=== PATIENT | female | born 2005 | race Caucasian/White ===

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

== ENCOUNTER → 2023-03-24 | Outpatient (CLI) | payer OTHER, SELFPAY ==
--- OUTSIDE RECORDS SUMMARY | 2023-03-24 16:20 | XMS RPT_ITS | CCD ---
Author Name Unknown Address [address] [place] [id number] Organization [facility] Care Team Providers Care Denier Control Operator Name Role Phone HELDER CAMARGO [facility] Azra vailable Results Test Name Value Interpretation Reference Range Facil ity Encounters Encounter Date Encounter Type Care Provider Facility Start: 03-08-2023 End: 03-08-2023 ambulatory HELDER IRWIN Facility:[facility] Payers Date Payer Category Payer Private Health Insurance [id number] Progress note 03-08-2023 Note Date & Type Note Facility 03-08-2023 Note HNO ID: [id number] Author: Nathaniel Pozo APRN.[employer]PER[employer]OR [employer] Service: ? Author Type: Nurse Practitioner Type: Progress Notes Filed: 03/08/2023 6:15 PM Note Text: Subjective HPI HPI Anders Saeed is a 17 year old female who presents today for CC of st, sinus pressure. This started 2 days ago. Has tried otc medication for relief. Symptoms are worsened by nothing. Risk factors sick exposures recently. .Patient presents with: Sore Throat: Sionus pressure x2 days No past medical history on file. PAST SURGICAL HISTORY Procedure Laterality Date PAST SURGICAL HISTORY OF trigger finger release age 1 ALLERGIES Patient has no known allergies. MEDICATIONS ALBUTEROL INHALATION Inhale as instructed. hydrALAZINE (APRESOLINE) 100 mg tablet Take 100 mg by mouth two times a day. metroNIDAZOLE (FLAGYL) 500 mg tablet Take 1 tablet by mouth twice daily. flunisolide 80 mcg/actuation HFAA Inhale as instructed. hydrOXYzine HCl (ATARAX) 25 mg tablet Take 25 mg by mouth three times daily as needed. montelukast chewable (SINGULAIR) 5 mg chewable tablet Take 5 mg by mouth daily at bedtime. predniSONE (DELTASONE) 10 mg tablet Take 3 tablets once daily by mouth for 3 days, then 2 tablets daily for 3 days then 1 tablet daily for 3 days. BECLOMETHASONE DIPROPIONATE (QVAR INHALATION) Inhale as instructed. LANSOPRAZOLE (PREVACID ORAL) Take by mouth. FAMILY HISTORY Problem Relation Age of Onset Stroke Father Social History Tobacco Use Smoking status: Never Smokeless tobacco: Never Review of Systems Constitutional: Negative for fever. HENT: Positive for congestion, ear pain and sore throat. Negative for nosebleeds. Respiratory: Negative for cough, shortness of breath and wheezing. Musculoskeletal: Negative for neck pain. Objective Blood pressure 114/60, pulse 100, temperature 36.9 ?C (98.5 ?F), resp. rate 18, weight 72.2 kg (159 lb 3.2 oz), last menstrual period 08/27/2018, SpO2 98%. Physical Exam Constitutional: General: She is not in acute distress. Appearance: She is not toxic-appearing or diaphoretic. HENT: Head: Normocephalic and atraumatic. Right Ear: Hearing, tympanic membrane, ear canal and external ear normal. Left Ear: Hearing, tympanic membrane, ear canal and external ear normal. Nose: Nose normal. Mouth/Throat: Pharynx: Uvula midline. Posterior oropharyngeal erythema present. No pharyngeal swelling, oropharyngeal exudate or uvula swelling. Eyes: General: Lids are normal. No scleral icterus. Right eye: No discharge. Left eye: No discharge. Conjunctiva/sclera: Conjunctivae normal. Pupils: Pupils are equal, round, and reactive to light. Neck: Trachea: Trachea normal. Cardiovascular: Rate and Rhythm: Normal rate and regular rhythm. Heart sounds: Normal heart sounds. Pulmonary: Effort: Pulmonary effort is normal. Breath sounds: Normal breath sounds. Musculoskeletal: Cervical back: Normal range of motion and neck supple. Lymphadenopathy: Cervical: No cervical adenopathy. Right cervical: No superficial cervical adenopathy. Left cervical: No superficial cervical adenopathy. Skin: Findings: No rash. Neurological: Mental Status: She is alert and oriented to person, place, and time. ASSESSMENT/PLAN: 1. Sore throat - ICD9: 462, ICD10: J02.9 - suspect viral - Group A strep molecular testing negative - antibiotic as written - Discussed supportive care treatment with fluids, rest and analgesia. - The patient should follow up in 3-5 days if symptoms persist or worsen - STREP A MOLECULAR (POC) Nathaniel Pozo APRN.[employer]PERVISOR [employer] [facility] Summary Purpose Family History No Family History Records FoundNo Family History Records Found Advance Directives No Advanced Directives Records FoundNo Advanced Directives Records Found Additional Source Comments INFORMATION SOURCE (unrecogn ized section and content) DATE CREATED AUTHOR AUTHOR'S ORGANIZ ATION 03/10/2023 [facility] FOR RECORDS PERTAINING TO PATIENTS WHO ARE OR HAVE BEEN ENROLLED IN A CHEMICAL DEPENDENCY/SUBSTANCEABUSE PROGRAM, SOME INFORMATION MAY BE OMITTED. This clinical summary was aggregated from multiple sources. Caution should be exercised in using it in the provision of clinical care. This summary normalizes information from multiple sources, and as a consequence, information in this document may materially change the coding, format and clinical context of patient data. In addition, data may be omitted in some cases. CLINICAL DECISIONS SHOULD BE BASED ON THE PRIMARY CLINICAL RECORDS. [employer] [facility]. provides no warranty or guarantee of the accuracy or completeness of information in this document.
[2023-03-24 17:53] LABS: Vitamin B12 250 pg/mL (211-911); Vitamin D,25 Hydroxy 23.3 ng/mL
[2023-03-24 17:55] LABS: Absolute Lymphocyte Count 2.79 X10^3/uL (0.83-4.51); Absolute Neutrophil Count 7.7 X10^3/uL (2.0-7.7); Basophil# 0.05 X10^3/uL; Basophil% 0.4 % (0-1); Eosinophil# 0.12 X10^3/uL; Eosinophils% 1.1 % (0-5); Hematocrit 41.3 % (37-47); Hemoglobin 13.4 g/dL (12.0-15.0); Lymphocyte # 2.79 X10^3/ul (0.83-4.51); Lymphocyte % 24.6 % (19-41); Mean Corp Hgb Conc 32.4 g/dL (32-36); Mean Corpuscular Hgb 29.1 pg (27.0-32.0); Mean Corpuscular Volume 89.6 fL (81-99); Mean Platelet Vol. 11.4 fl (6.2-12.0); Monocyte# 0.61 X10^3/uL; Monocyte% 5.4 % (0-10); NRBC Flagged by Analyzer 0 % (0-5); Neutrophil # 7.72 X10^3/uL (2.7-7.7); Neutrophil % 68.1 % (47-70); Platelet Count 315 K/mm3 (150-450); RBC Distribution Width SD 42.5 fl (35.1-43.9); Red Blood Count 4.61 M/mm3 (4.2-5.4); White Blood Count 11.3 K/mm3 (4.4-11.0)
[2023-03-24 17:56] LABS: Erythrocyte Sedimentation Rate 9 mm/hr (0-30)
[2023-03-24 18:14] LABS: CRP 3.83 mg/L (0.0-3.0)
== END | disposition home or self-care (01) ==
LOC: MTLAB 15:17
PROVIDERS: PCP Family Medicine; Referring Provider Family Medicine; Visit Provider Family Medicine
DX: M25.50 Pain in unspecified joint (principal); R53.83 Other fatigue; E55.9 Vitamin D deficiency, unspecified; M79.10 Myalgia, unspecified site; E53.8 Deficiency of other specified B group vitamins
CPT/HCPCS: 36415; 82306; 82607; 85025; 85652; 86140

== ENCOUNTER → 2023-06-22 | Outpatient (CLI) | payer OTHER, SELFPAY | END | disposition home or self-care (01) | PROVIDERS: PCP Family Medicine; Visit Provider Physician Assistant Surgical | DX: N39.0 Urinary tract infection, site not specified (principal) | CPT/HCPCS: 87086 ==

== ENCOUNTER → 2024-02-19 | Outpatient (CLI) | payer OTHER, SELFPAY ==
[2024-02-19 17:49] LABS: Erythrocyte Sedimentation Rate 8 mm/hr (0-30)
[2024-02-19 17:54] LABS: ALB/GLOB Ratio 1.5 RATIO (0.9-2.4); AST(SGOT) 20 U/L (15-37); Alanine Aminotransfer ALT/SGPT 49 U/L (13-56); Albumin, Serum 4.4 g/dL (3.2-5.0); Alkaline Phosphatase 39 U/L (45-117); Anion Gap 6 (5-15); BUN 10 mg/dL (7-18); BUN/Creat Ratio 12.5 RATIO (10-20); Calcium,Total 9.6 mg/dL (8.5-10.1); Chloride 109 mmol/L (98-107); EST Glomerular Filtration Rate 97 mL/min (>60); Est Glom Filt Rate - Afr Amer 117 mL/min (>60); Glucose 97 mg/dL (74-106); Protein, Total 7.4 g/dL (6.4-8.2); Sodium Level 139 mmol/L (136-145)
[2024-02-19 19:04] LABS: Vitamin B12 1819 pg/mL (211-911)
[2024-02-21 16:08] LABS: Deamidated Gliadin IgA 2 units (0-19); Deamidated Gliadin IgG 2 units (0-19); Endomysial Antibody IgA Negative (Negative); Immunoglobulin A 154 mg/dL (87-352); t-Transglutaminase IgA <2 U/mL (0-3)
[2024-02-26 09:22] LABS: Vitamin D 1,25-Dihydroxy 48.7 pg/mL (24.8-81.5)
== END | disposition home or self-care (01) ==
LOC: MTLAB 14:22
PROVIDERS: PCP Family Medicine; Referring Provider Family Medicine; Visit Provider Family Medicine
DX: K58.0 Irritable bowel syndrome with diarrhea (principal)
CPT/HCPCS: 36415; 80053; 82607; 82652; 82784; 83516; 85652; 86255

== ENCOUNTER → 2024-07-09 | Outpatient (CLI) | payer OTHER, SELFPAY ==
[2024-07-09 16:28] LABS: Absolute Lymphocyte Count 3.17 X10^3/uL (0.83-4.51); Absolute Neutrophil Count 6.7 X10^3/uL (2.0-7.7); Basophil# 0.04 X10^3/uL; Basophil% 0.4 % (0-1); Eosinophils% 1.8 % (0-5); Hematocrit 35.9 % (37-47); Hemoglobin 12.2 g/dL (12.0-15.0); Lymphocyte # 3.17 X10^3/ul (0.83-4.51); Lymphocyte % 28.8 % (19-41); Mean Corpuscular Hgb 31.6 pg (27.0-32.0); Mean Platelet Vol. 10.9 fl (6.2-12.0); Monocyte# 0.84 X10^3/uL; Monocyte% 7.6 % (0-10); NRBC Flagged by Analyzer 0 % (0-5); Neutrophil % 60.9 % (47-70); Platelet Count 291 K/mm3 (150-450); RBC Distribution Width SD 41.1 fl (35.1-43.9); Red Blood Count 3.86 M/mm3 (4.2-5.4)
[2024-07-09 17:28] LABS: ALB/GLOB Ratio 1.7 RATIO (0.9-2.4); AST(SGOT) 20 U/L (<=31); Alanine Aminotransfer ALT/SGPT 16 U/L (<=34); Albumin, Serum 4.4 g/dL (3.5-5.0); Alkaline Phosphatase 35 U/L (35-104); Anion Gap 11 (5-15); BUN 8 mg/dL (4-19); BUN/Creat Ratio 10.7 RATIO (10-20); Calcium,Total 9.3 mg/dL (7.6-11.0); Carbon Dioxide 20.7 mmol/L (21.0-32.0); Chloride 107 mmol/L (98-108); Creatinine, Serum 0.73 mg/dL (0.70-1.20); EST Glomerular Filtration Rate 121 (>60); Globulin 2.6 g/dL (2.2-4.2); Glucose 105 mg/dL (70-99); Sodium Level 139 mmol/L (133-145); Total Bilirubin 0.23 mg/dL (0.00-1.30)
[2024-07-09 18:02] LABS: CRP < 3.00 mg/L (0.0-3.0)
[2024-07-09 18:08] LABS: Erythrocyte Sedimentation Rate 7 mm/hr (0-30)
[2024-07-12 08:08] LABS: Calprotectin, Stool 104 ug/g (0-120)
[2024-07-12 16:09] LABS: ACCA 11 units (0-90); ALCA 11 units (0-60); AMCA 3 units (0-100); gASCA 19 units (0-50)
== END | disposition home or self-care (01) ==
LOC: LAB 15:47
PROVIDERS: PCP Family Medicine; Referring Provider Student in an Organized Health Care Education/Training Program; Visit Provider Student in an Organized Health Care Education/Training Program
DX: R11.0 Nausea (principal); R19.5 Other fecal abnormalities; K59.00 Constipation, unspecified
CPT/HCPCS: 36415; 80053; 83516; 83993; 85025; 85652; 86036; 86140; 86671

== ENCOUNTER 2024-09-10 06:29 | Emergency (ER) | payer OTHER, SELFPAY ==
[2024-09-10 06:29] VITALS: BP 130/91; PULSE 97; RESP 16; TEMP 36.8; O2SAT 100; BMI 21.4
--- OUTSIDE RECORDS SUMMARY | 2024-09-10 07:14 | XMS RPT_ITS | CCD ---
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 Name Role Phone Shania LAI, Joey Primary Care Provider Ciara Weiss Attending Unavailable Shania, Joey Referring Unavailable Shania, Chalon Primary Care Unavailable Shawna Kevin Attending Unavailable Shania, Joey Referring Unavailable Shania, Chalon Primary Care Unavailable Nilda Ghosh Attending Unavailable Shania, Chalon Primary Care Unavailable Wayne, Zoe Primary Care Unavailable Momo Keane Attending Unavailable Ciara Weiss Attending Unavailable Ciara Weiss Referring Unavailable Shania, Chalon Primary Care Unavailable Shania, Chalon Primary Care Unavailable ShaniaJoey Attending Unavailable Shania, Sulyon Referring Unavailable Momo Keane Attending Unavailable Shania, Chalon Primary Care Unavailable Medications Current Medications Medication Drug Class(es) Dates Sig (Normalized) Sig (Original) acetaminophen 325 mg / oxyCODONE hydrochloride 5 mg oral tablet (2 sources) Opioid Agonist Start: 05-07-2021 take 1 tablet by mouth every six hours Oxycodone-Acetami nophen (Endocet) 5-325 mg tablet Active 1 TABLET PO EVERY 6 HOURS 12 3 May 07, 2021 Albuterol (4 sources) beta2-Adrenergic Agonist Start: 02-04-2013 take 1 puff(s) by inhalation every four hours as needed Albuterol Sulfate Active 1 - 2 PUFF INHALATION EVERY 4 HOURS NEEDED February 04, 2013 1:00am ALBUTEROL INHALA TION Inhale as instructed. Active atropine sulfate 0.025 mg / diphenoxylate hydrochloride 2.5 mg oral tablet (2 sources) Anticholinergic, Cholinergic Muscarinic Antagonist, Antidiarrheal Start: 05-23-2024 diphenoxylate-atropine (LOMOTIL) 2.5-0.025 mg per tablet 05/23/2024 Active 24 hr buPROPion hydrochloride 300 mg extended release oral tablet (2 sources) Aminoketone Start: 03-20-2024 buPROPion XL (WELLBUTRIN XL) 300 mg 24 hr tablet 03/20/2024 Active Ethinyl Estradiol / Levonorgestrel (4 sources) Progestin, Estrogen, Progestin-containing Intrauterine Device Start: 03-30-2024 ASHLYNA 0.15 mg-30 mcg (84)/10 mcg (7) Take 1 tablet by mouth. 03/30/2024 Active Start: 05-07-2021 take 1 tablet by dickson th once daily Levonorgestrel-Ethinyl Estrad Active 1 TABLET PO DAILY May 07, 2021 1:00am flunisolide (2 sources) Corticosteroid flunisolide 80 mcg/actuation HFAA Inhale as instructed. Active hydrALAZINE hydrochloride 100 mg oral tablet (2 sources) Arteriolar Vasodilator take 1 tablet by mouth twice daily hydrALAZINE (APRESOLINE) 100 mg tablet Take 100 mg by mouth two times a day. Active hydrOXYzine hydrochloride 50 mg oral tablet (4 sources) Antihistamine Start: 05-07-19 take 50 mg by mouth once daily Hydroxyzine Hcl Active 50 MG PO DAILY May 07, 2021 1:00am take 1 tablet by dickson th every eight hours as needed hydrOXYzine HCl (ATARAX) 25 mg tablet Ta ke 25 mg by mouth three times daily as needed. Active ibuprofen 600 mg oral tablet (2 sources) Nonsteroidal Anti-inflammatory Drug Start: 05-07-2021 take 600 mg by mouth every six hours Ibuprofen Active 600 MG PO EVERY 6 HOURS 40 May 07, 2021 1:00am lansoprazole (2 sources) Proton Pump Inhibitor LANSOPRAZO LE (PREVACID ORAL) Take by mouth. Active metroNIDAZOLE 500 mg oral tablet (2 sources) Nitroimidazole Antimicrobial Start: 10-06-2018 take 1 tablet by mouth twice daily metroNIDAZOLE (FLAGYL) 500 mg tablet Take 1 tablet by mouth twice daily. 14 tablet 10/06/2018 Active montelukast 5 mg chewable tablet (2 sources) Leukotriene Receptor Antagonist take 1 tablet by mouth once daily at bedtime montelukast chewable (SINGULAIR) 5 mg chewable tablet Take 5 mg by mouth daily at bedtime. Active predniSONE 10 mg oral tablet (2 sources) Start: 03-10-2015 take 3 tablets by mouth once daily, then take 2 tablets by mouth once daily, then take 1 tablet by mouth once daily predniSONE (DELTASONE) 10 mg tablet Indications: Hives Take 3 tablets once daily by mouth for 3 days, then 2 tablets daily for 3 days then 1 tablet daily for 3 days. 18 tablet 0 03/10/2015 Active QUEtiapine 25 mg oral tablet (2 sources) Atypical Antipsychotic Start: 05-07-2021 take 25 mg by mouth once daily Quetiapine Active 25 MG PO DAILY May 07, 2021 1:00am traZODone hydrochloride 50 mg oral tablet (2 sources) Serotonin Reuptake Inhibitor Start: 05-23-2024 traZODone (DESYREL) 50 mg tablet 05/23/2024 Active Completed/Discontinued Medications Medication Drug Class(es) Dates Sig (Normalized) Sig (Original) Beclomethasone Dipropionate (4 sources) Corticosteroid Start: 02-04-2013 End: 11-24-2017 take 1 puff(s) by inhalation twice daily Beclomethasone Dipropionate Discontinued 2 PUFF INHALATION TWICE A DAY February 04, 2013 1:00am November 24, 2017 4:41pm BECLOMETHASONE D IPROPIONATE (QVAR INHALATION) Inhale as instructed. Active cephalexin 500 mg oral capsule (4 sources) Cephalosporin Antibacterial Start: 05-07-2021 End: 01-31-2022 take 500 mg by mouth three times daily Cephalexin Discontinued 500 MG PO THREE TIMES A DAY 21 May 07, 2021 1:00am January 31, 2022 3:56pm Start: 10-14-2018 End: 03-23-2021 take 500 mg by mouth every twelve hours Cephalexin Discontinued 500 MG PO EVERY 12 HOURS October 14, 2018 12:00am March 23, 2021 8:13am nitrofurantoin, macrocrystals 25 mg / nitrofurantoin, monohydrate 75 mg oral capsule (2 sources) Nitrofuran Antibacterial Start: 03-23-2021 End: 03-30-2021 take 1 capsule by mouth every twelve hours at mealtime Nitrofurantoin Monohyd/M-Cryst Discontinued 1 CAP PO Q12H 14 March 23, 2021 1:00am March 30, 2021 1:01am administer with a meal/food; swallow whole; do not open, crush, dissolve , or chew Problems Problem Classification Problem Date Documented Da te Episodic/Chronic Abdominal pain (4 sources) Right flank pain; Translations: [Unspecified abdominal pain] 05-15-2021 Episodic Anxiety disorders (1 source) Generalized anxiety disorder; Translations: [Generalized anxiety disorder] Onset: 04-17-2024 Chronic Genitourinary symptoms and ill-defined conditions (5 sources) Blood in urine; Translations: [Hematuria, unspecified] 01-31-2022 Episodic Nausea and vomiting (1 source) Nausea; Translations: [Nausea] Onset: 07-15-2024 Episodic Other gastrointestinal disorders (1 source) Irritable bowel syndrome with diarrhea; Translations: [Irritable bowel syndrome with diarrhea] Onset: 03-21-2024 Chronic Other upper respiratory infections (4 sources) Acute upper respiratory infection; Translations: [Acute upper respiratory infection, unspecified] 04-09-2018 Episodic Urinary tract infections (2 sources) Urinary tract infectious disease; Translations: [Urinary tract infection, site not specified] 03-23-2021 Episodic Results Test Name Value Interpretation Reference Range Facility Calprotectin, Stoolon [address] 104 ug/g Normal 0-120 [facility] Comment on above: Result Comment: Conc entration Interpretation Follow-Up < 5 - 50 ug/g Normal None >50 -120 ug/g Borderline Re-evaluate in 4-6 weeks >120 ug/g Abnormal Repeat as clinically indicated Performed at: [address] [id number] Bag Worker: Ashwin Molina MD, Phone: [phone] Performed By: #### L 7000.0700 #### [facility] [address] [place], [place], [id number] L2100.0000on 07-12-2024 ACCA 11 units Normal 0-90 [facility] Comment on above: Result Comment: Nega tive: <80 Equivocal: 80-90 Positive: >90 Performed By: #### L 101.9900, L2100.0000, L500.4050, L100.0100, L501.6710 #### [facility] [address] [place], [id number] ALCA 11 units Normal 0-60 [facility] Comment on above: Result Comment: Nega tive:<55 Equivocal: 55-60 Positive: >60 Performed By: #### L 101.9900, L2100.0000, L500.4050, L100.0100, L501.6710 #### [facility] [address] [place], [place], [id number] AMCA 3 units Normal 0-100 [facility] Comment on above: Result Comment: Nega tive: <90 Equivocal: 90-100 Positive: >100 This test was developed and its performance characteristics determined by [facility]. It has not been cleared or approved by the Food and Drug Administration. The FDA has determined that such clearance or approval is not necessary. Performed By: #### L 101.9900, L2100.0000, L500.4050, L100.0100, L501.6710 #### [facility] [address] [place], [address] Atypical pANCA Negative Normal Negative [facility] Comment on above: Performed By: #### L 101.9900, L2100.0000, L500.4050, L100.0100, L501.6710 #### [facility] [address] [place], [place], [id number] COMMENT Comment Normal . [facility] Comment on above: Result Comment: Ericka polina is not suggestive of Inflammatory Bowel Disease Performed at: [address] [id number] Bag Worker: Ashwin Molina MD, Phone: [phone] Performed By: #### L 101.9900, L2100.0000, L500.4050, L100.0100, L501.6710 #### [facility] [address] [place], [place], [id number] Sharath 19 units Normal 0-50 [facility] Comment on above: Result Comment: Nega tive: <45 Equivocal: 45-50 Positive: >50 Performed By: #### L 101.9900, L2100.0000, L500.4050, L100.0100, L501.6710 #### [facility] [address] [place], [address] CBC W/Diff, Automatedon 04- Absolute Lymph 3.17 X10 3/uL Normal 0.83-4.51 [facility] Comment on above: Performed By: #### L 101.9900, L2100.0000, L500.4050, L100.0100, L501.6710 #### [facility] [address] [place], [address] Absolute Neut 6.7 X10 3/uL Normal 2.0-7.7 [facility] Comment on above: Performed By: #### L 101.9900, L2100.0000, L500.4050, L100.0100, L501.6710 #### [facility] [address] [place], [address] Basophils/100 WBC (Bld) 0.4 % Normal 0-1 [facility] Comment on above: Performed By: #### L 101.9900, L2100.0000, L500.4050, L100.0100, L501.6710 #### [facility] [address] [place], [address] Eosinophils/100 WBC (Bld) 1.8 % Normal 0-5 [facility] Comment on above: Performed By: #### L 101.9900, L2100.0000, L500.4050, L100.0100, L501.6710 #### [facility] [address] [place], [address] Erythrocyte distribution width (RBC) [Ratio] 12.0 % Normal 11.6-14.6 [facility] Comment on above: Performed By: #### L 101.9900, L2100.0000, L500.4050, L100.0100, L501.6710 #### [facility] [address] [place], [address] Hematocrit (Bld) [Volume fraction] 35.9 % Low 37-47 [facility] Comment on above: Performed By: #### L 101.9900, L2100.0000, L500.4050, L100.0100, L501.6710 #### [facility] [address] [place], [address] Hemoglobin (Bld) [Mass/Vol] 12.2 g/dL Normal 12.0-15.0 [facility] Comment on above: Performed By: #### L 101.9900, L2100.0000, L500.4050, L100.0100, L501.6710 #### [facility] [address] [place], [address] IG% 0.500 Normal 0.0-0.9 [facility] Comment on above: Result Comment: IG% - Immature Granulocytes (promyelocytes, myelocytes and metamyelocytes) > 1% indicates that a LEFT SHIFT is Present. Performed By: #### L 101.9900, L2100.0000, L500.4050, L100.0100, L501.6710 #### [facility] [address] [place], [address] Lymphocytes/100 WBC (Bld) 28.8 % Normal 19-41 [facility] Comment on above: Performed By: #### L 101.9900, L2100.0000, L500.4050, L100.0100, L501.6710 #### [facility] [address] [place], [address] MCH (RBC) [Entitic mass] 31.6 pg Normal 27.0-32.0 [facility] Comment on above: Performed By: #### L 101.9900, L2100.0000, L500.4050, L100.0100, L501.6710 #### [facility] [address] [place], [address] MCHC (RBC) [Mass/Vol] 34.0 g/dL Normal 32-36 [facility] Comment on above: Performed By: #### L 101.9900, L2100.0000, L500.4050, L100.0100, L501.6710 #### [facility] [address] [place], [address] MCV (RBC) [Entitic vol] 93.0 fL Normal 81-99 [facility] Comment on above: Performed By: #### L 101.9900, L2100.0000, L500.4050, L100.0100, L501.6710 #### [facility] [address] [place], [address] Monocytes/100 WBC (Bld) 7.6 % Normal 0-10 [facility] Comment on above: Performed By: #### L 101.9900, L2100.0000, L500.4050, L100.0100, L501.6710 #### [facility] [address] [place], [address] Neutrophils/100 WBC (Bld) 60.9 % Normal 47-70 [facility] Comment on above: Performed By: #### L 101.9900, L2100.0000, L500.4050, L100.0100, L501.6710 #### [facility] [address] [place], [address] Nucleated RBC (Bld) [#/Vol] 0 10*3/uL Normal 0-5 [facility] Comment on above: Performed By: #### L 101.9900, L2100.0000, L500.4050, L100.0100, L501.6710 #### [facility] [address] [place], [address] Platelet mean volume (Bld) [Entitic vol] 10.9 fL Normal 6.2-12.0 [facility] Comment on above: Performed By: #### L 101.9900, L2100.0000, L500.4050, L100.0100, L501.6710 #### [facility] [address] [place], [address] Platelets (Bld) [#/Vol] 291 10*3/uL Normal 150-450 [facility] Comment on above: Performed By: #### L 101.9900, L2100.0000, L500.4050, L100.0100, L501.6710 #### [facility] [address] [place], [address] RBC (Bld) [#/Vol] 3.86 10*6/uL Low 4.2-5.4 [facility] Comment on above: Performed By: #### L 101.9900, L2100.0000, L500.4050, L100.0100, L501.6710 #### [facility] [address] [place], [address] RDW SD 41.1 fl Normal 35.1-43.9 [facility] Comment on above: Performed By: #### L 101.9900, L2100.0000, L500.4050, L100.0100, L501.6710 #### [facility] [address] [place], [address] WBC (Bld) [#/Vol] 11.0 10*3/uL Normal 4.4-11.0 [facility] Comment on above: Performed By: #### L 101.9900, L2100.0000, L500.4050, L100.0100, L501.6710 #### [facility] [address] [place], [address] CRPon 07-09-2024 C-REACTIVE PROT < 3.00 Normal 0.0-3.0 [facility] Comment on above: Performed By: #### L 101.9900, L2100.0000, L500.4050, L100.0100, L501.6710 #### [facility] [address] [place], [address] Comprehensive Metabolic Prof ilon 07-09-2024 Albumin [Mass/Vol] 4.4 g/dL Normal 3.5-5.0 [facility] Comment on above: Performed By: #### L 101.9900, L2100.0000, L500.4050, L100.0100, L501.6710 #### [facility] [address] [place], [address] Albumin/Globulin [Mass ratio] 1.7 {ratio} Normal 0.9-2.4 [facility] Comment on above: Performed By: #### L 101.9900, L2100.0000, L500.4050, L100.0100, L501.6710 #### [facility] [address] [place], [address] ALK PHOS 35 U/L Normal 35-104 [facility] Comment on above: Performed By: #### L 101.9900, L2100.0000, L500.4050, L100.0100, L501.6710 #### [facility] [address] [place], [address] ALT [Catalytic activity/Vol] 16 U/L Normal <=34 [facility] Comment on above: Performed By: #### L 101.9900, L2100.0000, L500.4050, L100.0100, L501.6710 #### [facility] [address] [place], [address] AST [Catalytic activity/Vol] 20 U/L Normal <=31 [facility] Comment on above: Performed By: #### L 101.9900, L2100.0000, L500.4050, L100.0100, L501.6710 #### [facility] [address] [place], [address] Bilirubin [Mass/Vol] 0.23 mg/dL Normal 0.00-1.30 [facility] Comment on above: Performed By: #### L 101.9900, L2100.0000, L500.4050, L100.0100, L501.6710 #### [facility] [address] [place], [address] BUN/CRE 10.7 RATIO Normal 10-20 [facility] Comment on above: Performed By: #### L 101.9900, L2100.0000, L500.4050, L100.0100, L501.6710 #### [facility] [address] [place], [address] Calcium [Mass/Vol] 9.3 mg/dL Normal 7.6-11.0 [facility] Comment on above: Performed By: #### L 101.9900, L2100.0000, L500.4050, L100.0100, L501.6710 #### [facility] [address] [place], [address] Chloride [Moles/Vol] 107 mmol/L Normal 98-108 [facility] Comment on above: Performed By: #### L 101.9900, L2100.0000, L500.4050, L100.0100, L501.6710 #### [facility] [address] [place], [address] CO2 [Moles/Vol] 20.7 mmol/L Low 21.0-32.0 [facility] Comment on above: Performed By: #### L 101.9900, L2100.0000, L500.4050, L100.0100, L501.6710 #### [facility] [address] [place], [address] Creatinine [Mass/Vol] 0.73 mg/dL Normal 0.70-1.20 [facility] Comment on above: Performed By: #### L 101.9900, L2100.0000, L500.4050, L100.0100, L501.6710 #### [facility] [address] [place], [address] GAP 11 Normal 5-15 [facility] Comment on above: Performed By: #### L 101.9900, L2100.0000, L500.4050, L100.0100, L501.6710 #### [facility] [address] [place], [address] GFR/1.73 sq M.predicted among non-blacks MDRD (S/P/Bld) [Vol rate/Area] 121 mL/min/{1.73_m2} Normal >60 [facility] Comment on above: Result Comment: mL/m in/1.73m2 CKD-EPI Creatinine Equation (2020) Performed By: #### L 101.9900, L2100.0000, L500.4050, L100.0100, L501.6710 #### [facility] [address] [place], [address] Globulin (S) [Mass/Vol] 2.6 g/dL Normal 2.2-4.2 [facility] Comment on above: Performed By: #### L 101.9900, L2100.0000, L500.4050, L100.0100, L501.6710 #### [facility] [address] [place], [address] Glucose [Mass/Vol] 105 mg/dL High 70-99 [facility] Comment on above: Performed By: #### L 101.9900, L2100.0000, L500.4050, L100.0100, L501.6710 #### [facility] [address] [place], [address] Potassium [Moles/Vol] 4.0 mmol/L Normal 3.3-5.1 [facility] Comment on above: Performed By: #### L 101.9900, L2100.0000, L500.4050, L100.0100, L501.6710 #### [facility] [address] [place], [address] Sodium [Moles/Vol] 139 mmol/L Normal 133-145 [facility] Comment on above: Performed By: #### L 101.9900, L2100.0000, L500.4050, L100.0100, L501.6710 #### [facility] [address] [place], [address] T PROT 7.0 g/dL Normal 5.9-8.4 [facility] Comment on above: Performed By: #### L 101.9900, L2100.0000, L500.4050, L100.0100, L501.6710 #### [facility] [address] [place], [address] Urea nitrogen [Mass/Vol] 8 mg/dL Normal 4-19 [facility] Comment on above: Performed By: #### L 101.9900, L2100.0000, L500.4050, L100.0100, L501.6710 #### [facility] [address] [place], [address] Erythrocyte Sed Rateon 07-09 SED RATE 7 mm/hr Normal 0-30 [facility] Comment on above: Performed By: #### L 101.9900, L2100.0000, L500.4050, L100.0100, L501.6710 #### [facility] [address] [place], [address] Gastroenterology Visit Repor ton 07-03-2024 Gastroenterology Visit Report [facility] [address] [place] [address] OFFICE VISIT Date of Service: 07/03/24 MR#: [id number] Acct: [id number] Name: MARIANGEL SAEED Rep #: [id number] : 2005 Provider: ANDREY Sanchez Age/Sex: 18/F [place] [facility] Status: Signed Intake Vital Signs 04/17/24 16:14 Height 5 ft Weight: 110 lb BMI 21.4 BP 117/76 Blood Pressure Location Lt brachial Position Sitting Respiration 16 Pulse 108 H Pulse Source Monitor Intake Visit Reasons: IBS-digestive issues Chief Complaint: diarrhea Allergies No Known Allergies Allergy (Verified 04/17/24 16:15) Medications ???Medication ???Instructions ???Recorded ???Confirmed ???Type albuterol sulfate 2.5 mg/3 mL mg inhalation 05/30/23 07/03/24 Hi story (0.083 %) solution for nebulization albuterol sulfate 90 mcg/actuation inhalation 05/30/23 04/17/24 His tory aerosol inhaler levonorgestrel-ethinyl estradiol 1 tab PO QDAY 05/30/23 04/17/24 Hi story 0.1 mg-20 mcg tablet trazodone 50 mg tablet 50 mg PO QHS 05/30/23 07/03/24 His tory bupropion HCl 300 mg 24 hr tablet, 300 mg PO QAM 90 days #90 tabs 0 04/17/24 07/03/24 Rx extended release diphenoxylate-atropine 2.5 1 tab PO BID 04/17/24 07/03/24 His tory mg-0.025 mg tablet diphenoxylate-atropine 2.5 1 tab PO BID PRN diarrhea #90 tabs 07/03/24 07/03/24 Rx mg-0.025 mg tablet (Lomotil) Patient : No Nurse's Note: OV 07.03.24 Pt here to establish care with [facility] with complaints of n/v/d/c, abdominal pain, gas, bloating and heartburn. Pt has no hx of EGD or colonoscopy. Pt reports she feels like her food digest slowly and sometime throws it up. She has tried Xifaxan and Lomotil for diarrhea but found only the Lomotil to be helpful. [facility] Medical History Acute otitis externa of right ear SANDRO (generalized anxiety disorder) Hematuria Dysuria Asthma Fatigue Migraines Family History Father CVA (cerebral vascular accident) Mother Diabetes Hypertension Anemia Social History Smoking Status: Current every day smoker tobacco type: e-cigarettes alcohol intake: never HPI HPI Chief Complaint: diarrhea Details: MARIANGEL SAEED, is a 18 F who presents to the office today for establishment with [facility]. Pt has struggled with alternating bowels for many years however over the past three years she has had worsening diarrhea. She was started on Lomotil by the PCP and has been taking it twice a day for some time now. This keeps her stool formed but is sometimes constipated. She also has frequent nausea and occasional vomiting. Her mother notes she has had heartburn every since childhood and has been on PPI in the past. SHe has never had an EGD or a colonoscopy. She denies family hx of personal hx of autoimmune diasease. ROS Const Constitutional: Positive for headache(s); No fatigue, fever(s) or weight change ENT ENT: Positive for headache(s); No difficulty swallowing Gastro GI: Positive for abdominal pain, bloating, constipation, diarrhea, heartburn, excessive flatus, loose stools, nausea/dyspepsia and vomiting; No belching, change in bowel habits, change in stool character, coffee ground emesis, cramping, difficulty swallowing, feeling full early, incontinent of stools, Vomiting blood/hematemesis, Blood in stool, Black,tarry stools, pain with swallowing or other Musc Musculoskeletal: Positive for joint pain and back pain Skin Skin: No yellowing of the eye or itchy eyes Neuro Neurology: Positive for headache(s) Psych Psychiatric: Positive for anxiety and No depression Endo Endocrine: No fatigue or weight change Aller/Imm Allergy/Immunologic: No itchy eyes Rodolfo/Lymp Hematologic/Lymphatic: No easy bleeding or easy bruising Exam Const General: cooperative and comfortable Nutritional Appearance: average body habitus and well nourished HENMT Head: normal to inspection Ears: hearing grossly normal bilaterally Nose: external nose normal Face and sinus: normal facial exam Mouth: oral mucosae normal Throat: posterior oropharynx normal Eyes General: appearance normal, both eyes and all related structures Neck Neck: normal visual inspection Chest Chest palpation inspection: normal inspection of the chest and normal palpation of entire chest wall Resp Effort Inspection: normal respiratory effort Auscultation: Bilateral: Clear to Auscultation Cardio Palpation: normal PMI Rate: regular rate Rhythm: regular rhythm GI Inspection: normal to inspection Auscultation: normal bowel sounds Percussion: normal to percussion Palpation: no hepatosplenomegaly S (more content not included)... Normal [facility] Bacteria Ur Culton Bacteria identified Cx Nom (U) ORGANISM ID: 1 10,000 -<50,000 CFU/ml Normal urogenital marquita Normal [facility] Comment on above: Performed By: #### 6 30-4 #### [facility] CLIA [id number] [address] [place] [address] OF [facility] CNOVon 05-24-2024 CNOV Office Visit ([facility] ) MARIANGEL SAEED ([id number]) [birth year] Date Time Provider Department 05/24/24 2:30 PM TANISHA BAUMAN [facility] During your visit today, we recorded the following information about you: Temperature Pulse Respiration Blood pressure 99.1 degrees 106/minute 18/minute 138/91 Weight Last Period 48.4 kg 04/17/24 Tanisha Bauman APRN.LOGISTICS CENTER MANAGER 05/24/2024 3:07 PM Signed [facility] Mariangel Saeed is a 18 year old female. Patient presents with: UTI: Frequency, painful urination, upset stomach x last night Patient came in with complaints of urinary frequency and abdominal cramping. Patient says she did have her period last month. Patient denies any risk of STDs. Patient denies any pain when urinating. Patient denies any vaginal itching or odor or discharge. Patient says she does have an active hemorrhoid that is bleeding on and off. The history is provided by the patient. No hide curer was used. UTI Associated symptoms include frequency. Review of Systems Constitutional: Negative. HENT: Negative. Genitourinary: Positive for frequency. Objective BP 138/91 Pulse 106 Temp 37.3 ?C (99.1 ?F) Resp 18 Wt 48.4 kg (106 lb 11.2 oz) LMP 04/17/2024 (Exact Date) SpO2 98% Physical Exam Constitutional: Appearance: Normal appearance. Eyes: Pupils: Pupils are equal, round, and reactive to light. Cardiovascular: Rate and Rhythm: Normal rate and regular rhythm. Heart sounds: Normal heart sounds. Pulmonary: Effort: Pulmonary effort is normal. Breath sounds: Normal breath sounds. Abdominal: General: Abdomen is flat. Palpations: Abdomen is soft. Tenderness: There is no abdominal tenderness. There is no right CVA tenderness, left CVA tenderness or guarding. Neurological: Mental Status: She is alert. No past medical history on file. PAST SURGICAL HISTORY Procedure Laterality Date PAST SURGICAL HISTORY OF trigger finger release age 1 ALLERGIES Patient has no known allergies. MEDICATIONS buPROPion XL (WELLBUTRIN XL) 300 mg 24 hr tablet traZODone (DESYREL) 50 mg tablet diphenoxylate-atropine (LOMOTIL) 2.5-0.025 mg per tablet ASHLYNA 0.15 mg-30 mcg (84)/10 mcg (7) Take 1 tablet by mouth. hydrALAZINE (APRESOLINE) 100 mg tablet Take 100 mg by mouth two times a day. (Patient not taking: Reported on 05/24/2024) metroNIDAZOLE (FLAGYL) 500 mg tablet Take 1 tablet by mouth twice daily. (Patient not taking: Reported on 05/24/2024) flunisolide 80 mcg/actuation HFAA Inhale as instructed. (Patient not taking: Reported on 05/24/2024) hydrOXYzine HCl (ATARAX) 25 mg tablet Take 25 mg by mouth three times daily as needed. (Patient not taking: Reported on 05/24/2024) montelukast chewable (SINGULAIR) 5 mg chewable tablet Take 5 mg by mouth daily at bedtime. (Patient not taking: Reported on 05/24/2024) predniSONE (DELTASONE) 10 mg tablet Take 3 tablets once daily by mouth for 3 days, then 2 tablets daily for 3 days then 1 tablet daily for 3 days. (Patient not taking: Reported on 05/24/2024) BECLOMETHASONE DIPROPIONATE (QVAR INHALATION) Inhale as instructed. (Patient not taking: Reported on 05/24/2024) LANSOPRAZOLE (PREVACID ORAL) Take by mouth. (Patient not taking: Reported on 05/24/2024) ALBUTEROL INHALATION Inhale as instructed. (Patient not taking: Reported on 05/24/2024) FAMILY HISTORY Problem Relation Age of Onset Stroke Father Social History Tobacco Use Smoking status: Never Smokeless tobacco: Never ASSESSMENT/PLAN: 1. Urinary frequency - ICD9: 788.41, ICD10: R35.0 acute - Patient education for prevention given - UA DIP, URINE (POC) - BACTERIAL CULTURE, URINE Patient will follow-up with primary care. If patient's urine culture is positive please prescribe appropriately. Patient large amount of blood was more than likely caused by her hemorrhoid. Tanisha Bauman APRN.LOGISTICS CENTER MANAGER MDM Procedures Allergies As of Date: 05/24/2024 (No Known Allergies) Date Reviewed: 05/24/2024 Reviewed by: Mayela Ornelas MA - Fully Assessed Reason for Visit: UTI [116] Cmt: Frequency, painful urination, upset stomach x last night Primary Visit Diagnosis:Urinary frequency [R35.0] Order(s):UA DIP, URINE (POC) [6113940] Order #: [id number]. #:[id number] BACTERIAL CULTURE, URINE [SQURCUL] Order #: [id number]. #:[id number] Prescriptions as of 05/24/2024 - buPROPion XL (WELLBUTRIN XL) 300 mg 24 hr tablet - traZODone (DESYREL) 50 mg tablet - diphenoxylate-atropine (LOMOTIL) 2.5-0.025 mg per tablet - ASHLYNA 0.15 mg-30 mcg (84)/10 mcg (7) Take 1 tablet by mouth. - hydrALAZINE (APRESOLINE) 100 mg tablet Take 100 mg by mouth two times a day. - metroNIDAZOLE (FLAGYL) 500 mg tablet Take 1 tablet by mouth twice daily. - flunisolide 80 mcg/actuation HFAA Inhale as instructed. - hydrOXYzine HCl (ANA CRISTINA (more content not included)... Normal [facility] UA DIP, URINE (POC)on 2024 BILIRUBIN UA (POCT) Negative Negative [facility] CLARITY UA (POCT) Clear [facility] COLOR UA (POCT) Yellow [facility] GLUCOSE UA (POCT) Negative Negative mg/dL [facility] Hemoglobin Ql (U) Large Abnormal Negative [facility] Interpretation and review of laboratory results Abnormal [facility] KETONE UA (POCT) 40 mg/dL Abnormal Negative [facility] LEUKOCYTES UA (POCT) Negative Negative [facility] NITRITE UA (POCT) Negative Negative [facility] PH UA (POCT) 6 4.5 - 8.[address] [facility] Protein Ql (U) Negative Negative mg/dL [facility] SPECIFIC GRAVITY UA (POCT) 1.01 1.005 - 1.[address] [facility] UROBILINOGEN UA (POCT) 0.2 Normal E.U./dL [facility] Location:[address], [address] [place] [address] POINT OF CARE [facility] MR/BMS.BPon 04-17-2024 MR/BMS.BP [address], [place] [address] OFFICE VISIT Date of Service: 04/17/24 MR#: [id number] Acct: [id number] Name: MARIANGEL SAEED Rep #: [id number] : 2005 Provider: Dr. Momo Lanier se, DO Age/Sex: 18/F [place] [facility] Status: Signed Intake Vital Signs 11/07/23 15:56 04/17/24 16:14 Height 5 ft 5 ft Weight: 110 lb BMI 21.4 BP 117/76 Blood Pressure Location Lt brachial Position Sitting Respiration 16 Pulse 108 H Pulse Source Monitor BP Intake Visit Reasons: follow up Allergies No Known Allergies Allergy (Verified 04/17/24 16:15) Medications ???Medication ???Instructions ???Recorded ???Confirmed ???Type albuterol sulfate 2.5 mg/3 mL mg inhalation 05/30/23 04/17/24 Hi story (0.083 %) solution for nebulization albuterol sulfate 90 mcg/actuation inhalation 05/30/23 04/17/24 His tory aerosol inhaler levonorgestrel-ethinyl estradiol 1 tab PO QDAY 05/30/23 04/17/24 Hi story 0.1 mg-20 mcg tablet trazodone 50 mg tablet 50 mg PO QHS 05/30/23 04/17/24 His tory bupropion HCl 300 mg 24 hr tablet, 300 mg PO QAM 90 days #90 tabs 0 04/17/24 04/17/24 Rx extended release diphenoxylate-atropine 2.5 1 tab PO BID 04/17/24 04/17/24 His tory mg-0.025 mg tablet PFSH Medical History Acute otitis externa of right ear SANDRO (generalized anxiety disorder) Hematuria Dysuria Asthma Fatigue Migraines Family History Father CVA (cerebral vascular accident) Mother Diabetes Hypertension Anemia Social History Smoking Status: Current every day smoker tobacco type: e-cigarettes alcohol intake: never HPI History of Present Illness History provided by: patient HPI: Mariangel Saeed is a 18 year old female who presents today for follow up evaluation. Feels like she is doing better with the increased dose of wellbutrin. Feels like she is doing better mentally. Has lost 50 lbs over the last year. But does still feel like she has somewhat of an appetite. Sleep has been good but does have some nights where she awakens due to dental pain. 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 Is considering doing physical therapy for chronic leg pain. Started some new medications for IBS but has not been on long enough to notice difference. Focus has been fair. Denies SI/HI or AVH. Review of Systems Constitutional Reports: change in weight (additional loss); Denies: fever(s), chills or fatigue Eyes Denies: change in vision or blurry vision Ears, Nose, Mouth, Throat Reports: neck pain; Denies: throat pain or change in hearing Cardiovascular Denies: palpitations or dyspnea Respiratory Denies: dyspnea, cough or wheezing Gastrointestinal Reports: nausea, vomiting, diarrhea and constipation; Denies: abdominal pain Genitourinary Denies: dysuria or urinary frequency Musculoskeletal Reports: neck pain; Denies: back pain, joint pain or muscle weakness Integumentary/Breast Denies: rash or new lesions Neurological Reports: headache(s); Denies: dizziness or confusion Endocrine Denies: fatigue or excessive sweating Hematologic/Lymphatic Denies: easy bruising or easy bleeding Allergic/Immunologic Denies: wheezing Exam Mental Status Exam - Psych Appearance casually dressed and no apparent distress Attitude cooperative and calm Activity/Motor Behavior MSE activity/motor behavior finding no adventitious movements Speech regular rate, regular volume and regular prosody Mood OK Affect congruent Thought Process linear, logical and coherent Thought Content no delusions and no hallucinations Suicidal Ideation none Homicidal Ideation none Attention intact Concentration intact Sensorium/Orientation awake, alert and oriented x3 Memory/Cognition other (appropriate for stated age) Insight fair Judgement good Assessment Plan Assessment Plan (1) SANDRO (generalized anxiety disorder): Plan: - Continue wellbutrin to 300 mg every day - Again encouraged to monitor weight as she continues to lose weight, nearly 50 lbs over the last year, however has seemed to stabilize in recent past Medications: Refilled bupropion HCl XL 300 mg PO QAM 90 tabs 1RF 90 days F41.1 - Generalized anxiety disorder Coding Level of Care Code Off vis,est,level 3 Diagnoses SANDRO (generalized anxiety disorder) F41.1 04/18/24 0642 Date Momo Cheema Signature: Date (if applicable) CC: Normal [facility] Vitamin D 1,25-Dihydroxyon 1 04-28-2023 VIT D 1,25 DIHY 48.7 pg/mL Normal 24.8-81.5 [facility] Comment on above: Order Comment: Order Date: 02/15/24Order Info: [id number] - [id number] Result Comment: Perf ormed at: [facility] [address] [id number] Bag Worker: Ashwin Molina MD, Phone: [phone] Performed By: #### L 3410.2350, L503.0105, L101.9900, L3300.0960, L500.4050 ####[facility] [address] [place], [address] Celiac AB,Comprehensiveon ANTIGLIADIN IGA 2 units Normal 0-19 [facility] Comment on above: Order Comment: Order Date: 02/15/24Order Info: 0751-1 - CELAB Result Comment: Nega tive 0 - 19 Weak Positive 20 - 30 Moderate to Strong Positive >30 Performed By: #### L 3410.2350, L503.0105, L101.9900, L3300.0960, L500.4050 ####[facility] [address] [place], [address] ANTIGLIADIN IGG 2 units Normal 0-19 [facility] Comment on above: Order Comment: Order Date: 02/15/24Order Info: 075-1 - CELAB Result Comment: Nega tive 0 - 19 Weak Positive 20 - 30 Moderate to Strong Positive >30 Performed By: #### L 3410.2350, L503.0105, L101.9900, L3300.0960, L500.4050 ####[facility] [address] [place], [address] ENDOMYSIAL IGA Negative Normal Negative [facility] Comment on above: Order Comment: Order Date: 02/15/24Order Info: 075-1 - CELAB Performed By: #### L 3410.2350, L503.0105, L101.9900, L3300.0960, L500.4050 ####[facility] [address] [place], [place], [id number] IMMUNOGLOB A QN 154 mg/dL Normal 87-352 [facility] Comment on above: Order Comment: Order Date: 02/15/24Order Info: 0751-1 - CELAB Result Comment: Perf ormed at: CB - [facility] [address] [id number] Bag Worker: Ramesh Barba PhD, Phone: [phone] Performed By: #### L 3410.2350, L503.0105, L101.9900, L3300.0960, L500.4050 ####[facility] [address] [place], [place], [id number] tTG IGA <2 Normal 0-3 [facility] Comment on above: Order Comment: Order Date: 02/15/24Order Info: 0751-1 - CELAB Result Comment: Nega tive 0 - 3 Weak Positive 4 - 10 Positive >10 Tissue Transglutaminase (tTG) has been identified as the endomysial antigen. Studies have demonstr- ated that endomysial IgA antibodies have over 99% specificity for gluten sensitive enteropathy. Performed By: #### L 3410.2350, L503.0105, L101.9900, L3300.0960, L500.4050 ####[facility] [address] [place], [place], [id number] tTG IGG <2 Normal 0-5 [facility] Comment on above: Order Comment: Order Date: 02/15/24Order Info: 0751-1 - CELAB Result Comment: Nega tive 0 - 5 Weak Positive 6 - 9 Positive >9 Performed By: #### L 3410.2350, L503.0105, L101.9900, L3300.0960, L500.4050 ####[facility] [address] [place], [address] Comprehensive Metabolic Prof ilon 02-19-2024 Albumin [Mass/Vol] 4.4 g/dL Normal 3.2-5.0 [facility] Comment on above: Order Comment: Order Date: 02/15/24Order Info: 0786-1 - CMP Performed By: #### L 3410.2350, L503.0105, L101.9900, L3300.0960, L500.4050 ####[facility] [address] [place], [address] Albumin/Globulin [Mass ratio] 1.5 {ratio} Normal 0.9-2.4 [facility] Comment on above: Order Comment: Order Date: 02/15/24Order Info: 0786-1 - CMP Performed By: #### L 3410.2350, L503.0105, L101.9900, L3300.0960, L500.4050 ####[facility] [address] [place], [address] ALK P 39 U/L Low 45-117 [facility] Comment on above: Order Comment: Order Date: 02/15/24Order Info: 0786-1 - CMP Performed By: #### L 3410.2350, L503.0105, L101.9900, L3300.0960, L500.4050 ####[facility] [address] [place], [address] ALT [Catalytic activity/Vol] 49 U/L Normal 13-56 [facility] Comment on above: Order Comment: Order Date: 02/15/24Order Info: 0786-1 - CMP Performed By: #### L 3410.2350, L503.0105, L101.9900, L3300.0960, L500.4050 ####[facility] [address] [place], [address] AST [Catalytic activity/Vol] 20 U/L Normal 15-37 [facility] Comment on above: Order Comment: Order Date: 02/15/24Order Info: 0786-1 - CMP Performed By: #### L 3410.2350, L503.0105, L101.9900, L3300.0960, L500.4050 ####[facility] [address] [place], [address] Bilirubin [Mass/Vol] 0.40 mg/dL Normal 0.20-1.00 [facility] Comment on above: Order Comment: Order Date: 02/15/24Order Info: 0786-1 - CMP Result Comment: For patients on eltrombopag therapy, use of Dimension [place] TBIL is not recommended. Performed By: #### L 3410.2350, L503.0105, L101.9900, L3300.0960, L500.4050 ####[facility] [address] [place], [address] BUN/CRE 12.5 RATIO Normal 10-20 [facility] Comment on above: Order Comment: Order Date: 02/15/24Order Info: 0786-1 - CMP Performed By: #### L 3410.2350, L503.0105, L101.9900, L3300.0960, L500.4050 ####[facility] [address] [place], [address] CA,Total 9.6 mg/dL Normal 8.5-10.1 [facility] Comment on above: Order Comment: Order Date: 02/15/24Order Info: 0786-1 - CMP Performed By: #### L 3410.2350, L503.0105, L101.9900, L3300.0960, L500.4050 ####[facility] [address] [place], [address] Chloride [Moles/Vol] 109 mmol/L High 98-107 [facility] Comment on above: Order Comment: Order Date: 02/15/24Order Info: 0786-1 - CMP Performed By: #### L 3410.2350, L503.0105, L101.9900, L3300.0960, L500.4050 ####[facility] [address] [place], [address] CO2 [Moles/Vol] 24.0 mmol/L Normal 21.0-32.0 [facility] Comment on above: Order Comment: Order Date: 02/15/24Order Info: 0786-1 - CMP Performed By: #### L 3410.2350, L503.0105, L101.9900, L3300.0960, L500.4050 ####[facility] [address] [place], [address] Creatinine [Mass/Vol] 0.80 mg/dL Normal 0.55-1.02 [facility] Comment on above: Order Comment: Order Date: 02/15/24Order Info: 0786-1 - CMP Result Comment: The validity of the calculated GFR GFRAA in patients over 70 years has not been determined. Clinical correlation is essential. Performed By: #### L 3410.2350, L503.0105, L101.9900, L3300.0960, L500.4050 ####[facility] [address] [place], [address] EST GFR - AA 117 mL/min Normal >60 [facility] Comment on above: Order Comment: Order Date: 02/15/24Order Info: 0786-1 - CMP Result Comment: Afri can [place] GFR Calc Performed By: #### L 3410.2350, L503.0105, L101.9900, L3300.0960, L500.4050 ####[facility] [address] [place], [address] GAP 6 Normal 5-15 [facility] Comment on above: Order Comment: Order Date: 02/15/24Order Info: 0786-1 - CMP Performed By: #### L 3410.2350, L503.0105, L101.9900, L3300.0960, L500.4050 ####[facility] [address] [place], [address] GFR/1.73 sq M.predicted among non-blacks MDRD (S/P/Bld) [Vol rate/Area] 97 mL/min/{1.73_m2} Normal >60 [facility] Comment on above: Order Comment: Order Date: 02/15/24Order Info: 0786-1 - CMP Result Comment: Non- GFR Calc Performed By: #### L 3410.2350, L503.0105, L101.9900, L3300.0960, L500.4050 ####[facility] [address] [place], [address] Globulin (S) [Mass/Vol] 3.0 g/dL Normal 2.2-4.2 [facility] Comment on above: Order Comment: Order Date: 02/15/24Order Info: 0786-1 - CMP Performed By: #### L 3410.2350, L503.0105, L101.9900, L3300.0960, L500.4050 ####[facility] [address] [place], [address] Glucose [Mass/Vol] 97 mg/dL Normal 74-106 [facility] Comment on above: Order Comment: Order Date: 02/15/24Order Info: 0786-1 - CMP Performed By: #### L 3410.2350, L503.0105, L101.9900, L3300.0960, L500.4050 ####[facility] [address] [place], [address] Potassium [Moles/Vol] 4.0 mmol/L Normal 3.5-5.1 [facility] Comment on above: Order Comment: Order Date: 02/15/24Order Info: 0786-1 - CMP Performed By: #### L 3410.2350, L503.0105, L101.9900, L3300.0960, L500.4050 ####[facility] [address] [place], [address] Sodium [Moles/Vol] 139 mmol/L Normal 136-145 [facility] Comment on above: Order Comment: Order Date: 02/15/24Order Info: 0786-1 - CMP Performed By: #### L 3410.2350, L503.0105, L101.9900, L3300.0960, L500.4050 ####[facility] [address] [place], [address] T PROT 7.4 g/dL Normal 6.4-8.2 [facility] Comment on above: Order Comment: Order Date: 02/15/24Order Info: 0786-1 - CMP Performed By: #### L 3410.2350, L503.0105, L101.9900, L3300.0960, L500.4050 ####[facility] [address] [place], [address] Urea nitrogen [Mass/Vol] 10 mg/dL Normal 7-18 [facility] Comment on above: Order Comment: Order Date: 02/15/24Order Info: 0786-1 - CMP Performed By: #### L 3410.2350, L503.0105, L101.9900, L3300.0960, L500.4050 ####[facility] [address] [place], [address] Erythrocyte Sed Rateon 02-18 SED RATE 8 mm/hr Normal 0-30 [facility] Comment on above: Order Comment: Order Date: 02/15/24 Order Info: [id number] - SED Performed By: #### L 3410.2350, L503.0105, L101.9900, L3300.0960, L500.4050 #### [facility] [address] [place], [address] Vitamin B12on 02-19-2024 Cobalamin (Vitamin B12) [Mass/Vol] 1819 pg/mL High 211-911 [facility] Comment on above: Order Comment: Order Date: 02/15/24Order Info: 2132-9 - B12 Performed By: #### L 3410.2350, L503.0105, L101.9900, L3300.0960, L500.4050 ####[facility] [address] [place], [place], [id number] MR/BMS.BPon 11-07-2023 MR/BMS.BP [facility] [address] [facility], [address] [place] [address] OFFICE VISIT Date of Service: 11/07/23 MR#: [id number] Acct: [id number] Name: MARIANGEL SAEED Rep #: [id number] : 2005 Provider: Dr. Momo Lanier se, DO Age/Sex: 18/F [place] [facility] Status: Signed Intake Vital Signs 05/30/23 16:43 11/07/23 15:55 11/07/23 15:56 Height 5 ft 5 ft 5 ft Weight: 145 lb 122 lb BMI 28.3 23.8 BP 110/74 124/60 H Blood Pressure Location Lt brachial Lt brachial Position Sitting Sitting Respiration 16 16 Pulse 98 96 Pulse Source Monitor Monitor Temp 98.9 F Pulse Oximetry (%) 98 Oxygen Delivery Method room air BP Intake Visit Reasons: follow up Is patient in pain?: No Allergies No Known Allergies Allergy (Verified 06/21/23 16:41) Medications ???Medication ???Instructions ???Recorded ???Confirmed ???Type albuterol sulfate 2.5 mg/3 mL mg inhalation 05/30/23 11/07/23 History (0.083 %) solution for nebulization albuterol sulfate 90 mcg/actuation inhalation 05/30/23 11/07/23 History aerosol inhaler baclofen 10 mg tablet 10 mg PO QDAY 05/30/23 11/07/23 History hydroxyzine HCl 50 mg tablet 50 mg PO QHS 05/30/23 11/07/23 History levonorgestrel-ethinyl estradiol 1 tab PO QDAY 05/30/23 11/07/23 History 0.1 mg-20 mcg tablet trazodone 50 mg tablet 50 mg PO QHS 05/30/23 11/07/23 History bupropion HCl 300 mg 24 hr tablet, 300 mg PO QAM 90 days #90 tabs 11/07/23 11/07/23 [facility] Medical History Acute otitis externa of right ear SANDRO (generalized anxiety disorder) Hematuria Dysuria Asthma Fatigue Migraines Family History Father CVA (cerebral vascular accident) Mother Diabetes Hypertension Anemia Social History Smoking Status: Current every day smoker tobacco type: e-cigarettes alcohol intake: never HPI History of Present Illness History provided by: patient HPI: Mariangel Saeed is a 18 year old female who presents today for follow up evaluation. Feels like she feels like her moods might change quickly and go from feeling pretty good to being more emotional. Happens about weekly. Feels like wellbutrin is not as effective as it had been initially. Describes mood being very good previously but this seems to taper off over time. Has been sleeping a lot more in recent past getting 10-11 hours staight. Does feel tired during this time. 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 Appetite has been all over the place. Varies between voracious and barely eating. Has lost nearly 40 lbs since the start of this year. Has some additional medical concerns like stomach issues. Neck and shoulder pain. Has never seen a GI doctor. Review of Systems Constitutional Denies: fever(s), chills, change in weight or fatigue Eyes Denies: change in vision or blurry vision Ears, Nose, Mouth, Throat Reports: neck pain; Denies: throat pain or change in hearing Cardiovascular Denies: palpitations or dyspnea Respiratory Denies: dyspnea, cough or wheezing Gastrointestinal Reports: nausea, vomiting, diarrhea and constipation; Denies: abdominal pain Genitourinary Denies: dysuria or urinary frequency Musculoskeletal Reports: neck pain; Denies: back pain, joint pain or muscle weakness Integumentary/Breast Denies: rash or new lesions Neurological Reports: headache(s); Denies: dizziness or confusion Endocrine Denies: fatigue or excessive sweating Hematologic/Lymphatic Denies: easy bruising or easy bleeding Allergic/Immunologic Denies: wheezing Exam Mental Status Exam - Psych Appearance casually dressed and no apparent distress Attitude cooperative and calm Activity/Motor Behavior MSE activity/motor behavior finding no adventitious movements Speech regular rate, regular volume and regular prosody Mood irritable (intermittently) Affect congruent Thought Process linear, logical and coherent Thought Content no delusions and no hallucinations Suicidal Ideation none Homicidal Ideation none Attention intact Concentration intact Sensorium/Orientation awake, alert and oriented x3 Memory/Cognition other (appropriate for stated age) Insight fair Judgement good Assessment Plan Assessment Plan (1) SANDRO (generalized anxiety disorder): Plan: - Will increase wellbutrin to 300 mg every day - discussed watching appetite very closely as she has had some difficulty with eating intermittently - discussed the possibility of using cymbalta in place of wellbutrin given comorbid neck/shoulder pain and IBS type symptoms but will hold at this time Medications: Changed From (more content not included)... Normal [facility] Absolute lymphocyte countOrd ered By: Dr. Black on 08-22-2022 Lymphocytes Auto (Unsp spec) [#/Vol] 3.63 10*3/uL 0.83-4.51 [facility] Basophil percentageOrdered B y: Dr. Black on 08-22-2022 Basophils/100 WBC (Bld) 0.4 % 0-1 [facility] Eosinophils/100 WBC (Bld) 1.2 % 0-5 [facility] Neutrophils (Bld) [#/Vol] 8.1 10*3/uL 2.0-7.7 [facility] Neutrophils/100 WBC (Bld) 62.9 % 47-70 [facility] WBC (Bld) [#/Vol] 12.9 10*3/uL 4.4-11.0 [facility] Blood erythrocytes count (nu mber/volume)Ordered By: Dr. Black on 08-22-2022 RBC (Bld) [#/Vol] 4.54 10*6/uL 4.2-5.4 [facility] Blood hemoglobin measurement (mass/volume)Ordered By: Dr. Black on 08-22-2022 Hemoglobin (Bld) [Mass/Vol] 13.7 g/dL 12.0-15.0 [facility] Blood lymphocytes/100 leukoc ytesOrdered By: Dr. Black on 08-22-2022 Lymphocytes/100 WBC (Bld) 28.2 % 19-41 [facility] Blood monocytes/100 leukocyt esOrdered By: Dr. Black on 08-22-2022 Monocytes/100 WBC (Bld) 6.9 % 0-10 [facility] Blood platelet mean volumeOr dered By: Dr. Black on 08-22-2022 Platelet mean volume (Bld) [Entitic vol] 11.4 fL 6.2-12.0 [facility] Determination of erythrocyte mean corpuscular volume (MCV)Ordered By: Dr. Black on 08-22-2022 MCV (RBC) [Entitic vol] 91.0 fL 81-99 [facility] Hematocrit Auto (Bld) [Volum e fraction]Ordered By: Dr. Black on 08-22-2022 Hematocrit (Bld) [Volume fraction] 41.3 % 37-47 [facility] Laboratory - Hematology and Cell countsOrdered By: Dr. Black on 08-22-2022 Erythrocyte distribution width (RBC) [Entitic vol] 40.6 fL 35.1-43.9 [facility] Erythrocyte distribution width (RBC) [Ratio] 12.2 % 11.6-14.6 [facility] Immature granulocytes/100 WBC (Bld) 0.400 % 0.0-0.9 [facility] Comment on above: IG% - Immature Granu locytes (promyelocytes, myelocytes and metamyelocytes) > 1% indicates that a LEFT SHIFT is Present. MCH (RBC) [Entitic mass] 30.2 pg 27.0-32.0 [facility] Nucleated RBC/100 WBC (Bld) [Ratio] 0 % 0-5 [facility] MCHC Auto (RBC) [Mass/Vol]Or dered By: Dr. Black on 08-22-2022 MCHC (RBC) [Mass/Vol] 33.2 g/dL 32-36 [facility] Platelets bldOrdered By: Dr. Black on 08-22-2022 Platelets (Bld) [#/Vol] 376 10*3/uL 150-450 [facility] Absolute lymphocyte countOrd ered By: Dr. Black on 07-14-2022 Lymphocytes Auto (Unsp spec) [#/Vol] 3.01 10*3/uL 0.83-4.51 [facility] Basophil percentageOrdered B y: Dr. Black on 07-14-2022 Basophil percentage Not Reportable [facility] Basophils/100 WBC (Bld) 0.4 % 0-1 [facility] Bilirubin [Mass/Vol] 0.20 mg/dL 0.20-1.00 [facility] Comment on above: For patients on eltr ombopag therapy, use of Dimension [place] TBIL is not recommended. Chloride [Moles/Vol] 107 mmol/L 98-107 [facility] Eosinophils/100 WBC (Bld) 2.0 % 0-3 [facility] Glucose [Mass/Vol] 83 mg/dL 74-106 [facility] Neutrophils (Bld) [#/Vol] 9.3 10*3/uL 2.0-7.7 [facility] Neutrophils/100 WBC (Bld) 68.1 % 34-64 [facility] Potassium [Moles/Vol] 4.2 mmol/L 3.5-5.1 [facility] Protein [Mass/Vol] 7.6 g/dL 6.4-8.2 [facility] Sodium [Moles/Vol] 140 mmol/L 136-145 [facility] WBC (Bld) [#/Vol] 13.7 10*3/uL 4.5-13.0 [facility] Blood erythrocytes count (nu mber/volume)Ordered By: Dr. Black on 07-14-2022 RBC (Bld) [#/Vol] 4.40 10*6/uL 4.1-4.8 [facility] Blood hemoglobin measurement (mass/volume)Ordered By: Dr. Black on 07-14-2022 Hemoglobin (Bld) [Mass/Vol] 13.0 g/dL 12.0-15.0 [facility] Blood lymphocytes/100 leukoc ytesOrdered By: Dr. Black on 07-14-2022 Lymphocytes/100 WBC (Bld) 21.9 % 25-45 [facility] Blood monocytes/100 leukocyt esOrdered By: Dr. Black on 07-14-2022 Monocytes/100 WBC (Bld) 7.1 % 3-6 [facility] Blood platelet mean volumeOr dered By: Dr. Black on 07-14-2022 Platelet mean volume (Bld) [Entitic vol] 11.0 fL 6.2-12.0 [facility] Determination of erythrocyte mean corpuscular volume (MCV)Ordered By: Dr. Black on 07-14-2022 MCV (RBC) [Entitic vol] 90.5 fL 78-96 [facility] Erythrocyte sedimentation ra teOrdered By: Dr. Black on 07-14-2022 ESR (Bld) [Velocity] 11 mm/h 0-30 [facility] Hematocrit Auto (Bld) [Volum e fraction]Ordered By: Dr. Black on 07-14-2022 Hematocrit (Bld) [Volume fraction] 39.8 % 37-46 [facility] Laboratory - Chemistry and C hemistry - challengeOrdered By: Dr. Black on 07-14-2022 ALP [Catalytic activity/Vol] 54 U/L 47-119 [facility] ALT [Catalytic activity/Vol] 19 U/L 13-56 [facility] CO2 [Moles/Vol] 25.0 mmol/L 21.0-32.0 [facility] Free T4 [Mass/Vol] 0.94 ng/dL 0.76-1.46 [facility] Globulin (S) [Mass/Vol] 3.5 g/dL 2.2-4.2 [facility] Urea nitrogen/Creatinine [Mass ratio] 15.4 mg/mg 10-20 [facility] - Hematology and Cell countsOrdered By: Dr. Black on 07-14-2022 Erythrocyte distribution width (RBC) [Entitic vol] 39.6 fL 35.1-43.9 [facility] Erythrocyte distribution width (RBC) [Ratio] 11.9 % 11.6-14.6 [facility] Immature granulocytes/100 WBC (Bld) 0.500 % 0.0-0.9 [facility] Comment on above: IG% - Immature Granu locytes (promyelocytes, myelocytes and metamyelocytes) > 1% indicates that a LEFT SHIFT is Present. MCH (RBC) [Entitic mass] 29.5 pg 25.0-35.0 [facility] Nucleated RBC/100 WBC (Bld) [Ratio] 0 % 0-5 [facility] MCHC Auto (RBC) [Mass/Vol]Or dered By: Dr. Black on 07-14-2022 MCHC (RBC) [Mass/Vol] 32.7 g/dL 32-36 [facility] No Panel InformationOrdered By: Dr. Black on 07-14-2022 Anti-Nuclear Antibody Screen Negative Negative [facility] Comment on above: Performed at: [facility] [address] [id number] Director: Ramesh Barba PhD, Phone: [phone] Centromere B Antibody Not Reportable [facility] Estimated GFR (MDRD) Amer 123 mL/min >60 [facility] Comment on above: GFR Calc Estimated GFR (MDRD) Non-Af Amer 101 mL/min >60 [facility] Comment on above: Non- GFR Calc Free Triiodothyronine (T3) pg/dL 2.5 pg/mL 2.18-3.98 [facility] CEMENTER OIL WELL Antibody Not Reportable [facility] Thyroglobulin Antibody < 1.0 IU/mL 0.0-0.9 [facility] Comment on above: Thyroglobulin Antibo dy measured by [employer] GmbHMethodologyPerformed at: [facility] [address] [id number] Director: Ramesh Barba PhD, Phone: [phone] Thyroid Stimulating Hormone (TSH) 1.45 uIU/mL 0.358-3.74 [facility] Platelets bldOrdered By: Dr. Black on 07-14-2022 Platelets (Bld) [#/Vol] 328 10*3/uL 150-450 [facility] Serum DNA double strand anti body assay (units/volume)Ordered By: Dr. Black on 07-14-2022 DNA double strand Ab Qn (S) Not Reportable [facility] Serum Aline-1 antibody assay (u nits/volume)Ordered By: Dr. Black on 07-14-2022 Aline-1 extractable nuclear Ab Qn (S) Not Reportable [facility] Serum Scl-70 extractable nuc lear antibody assay (units/volume)Ordered By: Dr. Black on 07-14-2022 SCL-70 extractable nuclear Ab Qn (S) Not Reportable [facility] Serum Aclhoun extractable nucl ear antibody detectionOrdered By: Dr. Black on 07-14-2022 Calhoun extractable nuclear Ab Ql (S) Not Reportable [facility] Serum or plasma C reactive p rotein measurement (mass/volume)Ordered By: Dr. Black on 07-14-2022 CRP [Mass/Vol] 5.80 mg/L 0.0-3.0 [facility] Comment on above: C-Reactive Protein ( CRP) provides useful information for thediagnosis, therapy and monitoring of inflammatory processesand associated diseases. For the evaluation of Relative Riskfor Cardiovascular Disease, a High Sensitivity CRP (HSCRP)should be ordered. Serum or plasma albumin jerman urement (mass/volume)Ordered By: Dr. Black on 07-14-2022 Albumin [Mass/Vol] 4.1 g/dL 3.2-5.0 [facility] Serum or plasma albumin/glob ulin mass ratioOrdered By: Dr. Black on 07-14-2022 Albumin/Globulin [Mass ratio] 1.2 {ratio} 0.9-2.4 [facility] Serum or plasma calcium jerman urement (mass/volume)Ordered By: Dr. Black on 07-14-2022 Calcium [Mass/Vol] 9.8 mg/dL 8.5-10.1 [facility] Serum or plasma creatinine m easurement (mass/volume)Ordered By: Dr. Black on 07-14-2022 Creatinine [Mass/Vol] 0.78 mg/dL 0.55-1.02 [facility] Comment on above: The validity of the calculated GFR & GFRAA in patients over 70 years has not been determined. Clinical correlation is essential. Serum or plasma thyroperoxid ase antibody assay (units/volume)Ordered By: Dr. Black on 07-14-2022 TPO Ab Qn [IU]/mL 0-26 [facility] Serum or plasma urea nitroge n measurement (mass/volume)Ordered By: Dr. Black on 07-14-2022 Urea nitrogen [Mass/Vol] 12 mg/dL 7-18 [facility] Thin prep Papanicolaou smear with manual screeningOrdered By: Dr. Black on 07-14-2022 Thin prep Papanicolaou smear with manual screening 15 U/L 15-37 [facility] Thin prep Papanicolaou smear with manual screening 8 5-15 [facility] Progress Noteon 04-20-2020 Head Up Operator Authentication Interface Message Text Patient ID: Mariangel Saeed is a 14 y.o. female. Her chief complaint(s) include: 14 YEAR WELL CHILD (depression/anxiety) Assessment 1. Encounter for routine child health examination without abnormal findings 2. Exercise counseling 3. Encounter for dietary counseling and surveillance Plan Mariangel was seen today for 14 year well child. Diagnoses and all orders for this visit: Encounter for routine child health examination without abnormal findings - PHQ9 Assessment With Score - Health Risk Assessment - KARELY Exercise counseling Encounter for dietary counseling and surveillance call for any questions/concerns/problems/c hanges All questions answered Return in about 1 year (around 04/20/2021) for well check. Continue counselingMariangel aSeed is a 14 y.o. female patient. PHQ9 Assessment With Score Performed by: Anneliese Sage MD Authorized by: Anneliese Sage MD PHQ-9 See PHQ9 Flowsheet Feeling down, depressed, irritable or hopeless: Nearly every day Little interest or pleasure in doing things: Nearly every day Trouble falling or staying sleep, or sleeping too much: More than half the days Poor appetite, weight loss, or overeating: Nearly every day Feeling tired or having little energy: Nearly every day Feeling bad about yourself - or feeling that you are a failure, or have let yourself or your family down: More than half the days Trouble concentrating on things, like school work, reading or watching TV: More than half the days Moving or speaking so slowly that other people could have noticed. Or the opposite - being so fidgety or restless that you were moving around a lot more than usual: Not at all Thoughts that you would be better off , or of hurting yourself in some way: Not at all In the past year have you felt depressed or sad most days, even if you felt OK sometimes?: Yes If you are experiencing any of the problems on this form, how difficult have these problems made it for you to do your work, take care of things at home or get along with other people?: Very difficult Has there been a time in the past month when you have had serious thoughts about ending your life?: No Have you ever, in your whole life, tried to kill yourself or made a suicide attempt?: No PHQ-9 Total Score: 18 Health Risk Assessment - CRAFFT Authorized by: Anneliese Sage MD CRAFFT Results: 1. Drink more than a few sips of beer, wine, or any drink containing alcohol? Put 0 if none.: 0 2. Use any marijuana (weed, oil, or hash by smoking, vaping, or in food) or synthetic marijuana (like K2, Spice)? Put 0 if none.: 0 3. Use anything else to get high (like other illegal drugs, prescription or tbtz-hhe-vpjfqgh medications, and things that you sniff, tenorio, or vape)? Put 0 if none.: 0 4. Use any tobacco or nicotine products (for example, cigarettes, e-cigarettes, hookahs or smokeless tobacco)?: 0 5. Have you ever ridden in a CAR driven by someone (including yourself) who was high or had been using alcohol or drugs?: No Comments: reviewed. Electronically signed by: Anneliese Sage MD Subjective She is accompanied by her mother. 14 YEAR WELL CHILD Home: Mariangel eats meals with family. Education: Mariangel is in 11th grade and is doing well. Activities & Sports: Mariangel has friends. Drugs: Mariangel does not use tobacco and does not use alcohol. Menstruation Last Menstrual Period: 2 weeks ago. Menstruation: irregular periods Output Urine and Stool Pattern: Urine and Stool Pattern: Normal stool pattern, normal urine pattern. Primary Care Review of Systems Objective Vital Signs 04/20/20 1356 BP: 128/80 Pulse: 91 Temp: 37 C (98.6 F) TempSrc: Temporal Weight: 49.7 kg Height: (!) 153.5 cm Body mass index is 21.09 kg/m . Physical Exam Constitutional: She appears well. She is active. No distress. HENT: Head: Atraumatic. Ears: Right Ear: Tympanic membrane normal. Left Ear: Tympanic membrane normal. Mouth/Throat: Mucous membranes are moist. Eyes: Conjunctivae are normal. Cardiovascular: Normal rate and regular rhythm. Heart murmur not heard. Pulmonary/Chest: Breath sounds normal. There is normal air entry. Neurological: She is alert. Normal [facility] Vital Signs Date Time Vital Sign Value Performing Clinician Lindsey brown 05-24-2024 14:25-0400 Body temperature 99.1 [degF] Tanisha Bauman APRN.LOGISTICS CENTER MANAGER Work Phone: [facility] 05-24-2024 14:25-0400 Body weight 48.4 kg Tanisha Bauman APRN.LOGISTICS CENTER MANAGER Work Phone: [facility] 05-24-2024 14:25-0400 Diastolic blood pressure 91 mm[Hg] Tanisha Bauman APRN.LOGISTICS CENTER MANAGER Work Phone: [facility] 05-24-2024 14:25-0400 Heart rate 106 /min Tanisha Bauman APRN.LOGISTICS CENTER MANAGER Work Phone: [facility] 05-24-2024 14:25-0400 Respiratory rate 18 /min Tanisha Bauman APRN.LOGISTICS CENTER MANAGER Work Phone: [facility] 05-24-2024 14:25-0400 SaO2% (BldA) [Mass fraction] 98 % Tanisha Bauman APRN.LOGISTICS CENTER MANAGER Work Phone: [facility] 05-24-2024 14:25-0400 Systolic blood pressure 138 mm[Hg] Tanisha Bauman APRN.LOGISTICS CENTER MANAGER Work Phone: [facility] Encounters Encounter Date Encounter Type Care Provider Facility Start: 07-09-2024 End: 07-09-2024 ambulatory [facility] Facility:[facility] Start: 07-03-2024 End: 07-03-2024 ambulatory [facility] Start: 05-31-2024 ambulatory Shawna Kevin [place] Start: 05-26-2024 End: 07-26-2024 Follow-up encounter Guillermo BALDERAS Work Phone: [facility] Start: 05-24-2024 End: 05-24-2024 ambulatory JOEY COUGHLIN Facility:[facility] Start: 05-24-2024 End: 05-24-2024 Patient encounter procedure Tanisha Bauman APRN.LOGISTICS CENTER MANAGER Work Phone: [facility] Comment on above: Urinary frequency (P rimary Dx) Start: 05-07-2024 ambulatory Nilda Burton y:[facility] Start: 04-17-2024 End: 04-17-2024 ambulatory Momo Keane Facility[place] Start: 02-19-2024 End: 02-19-2024 ambulatory Joey Coughlin Facility:[facility] Start: 11-07-2023 End: 11-07-2023 ambulatory Zoe Black Facility:[facility] Start: 08-22-2022 End: 08-22-2022 ambulatory [facility] Work Phone: Start: 08-22-2022 End: 08-22-2022 [facility] Start: 07-14-2022 End: 07-14-2022 ambulatory [facility] Work Phone: Start: 07-14-2022 End: 07-14-2022 Patient encounter procedure [facility] Start: 07-06-2022 Registered [facility] Procedures Date Procedure Procedure Detail Performing Clinician Start: 05-24-2024 Urnls dip stick/tabl et rgnt auto w/o microscopy Tanisha Bauman APRN.LOGISTICS CENTER MANAGER Work Phone: Plan of Treatment Date Care Activity Detail Author Start: 11-11-2024 Influenza vaccination Influenz a Vaccine (Season Ended) [facility] Start: 11-12-2023 Covid-19 Vaccine ( season) Covid-19 Vaccine ( season) [facility] Start: 11-12-2023 Influenza vaccination Influenza Vacc ine (#1) [facility] Start: 07-24-2021 Anxiety Screening Anxiety Screening [facility] Start: 07-24-2021 Depression Screening Depression Scre ening [facility] Start: 07-24-2021 GC (Gonorrhea) Scree jasbir (18-24) GC (Gonorrhea) Screening (18-24) [facility] Start: 07-24-2021 Hepatitis C screening Hepatitis C Sc reejasbir [facility] Start: 07-24-2021 HIV screening HIV Screening [facility] Start: 07-24-2021 Screening for Chlamy abdon trachomatis Chlamydia Screening (18-24) [facility] Start: 2019 Meningococcal B Vacc ine (1 of 2 - Standard) Meningococcal B Vaccine (1 of 2 - Standard) [facility] Start: 07-24-2018 HPV Vaccine (1 - 3-d ose series) HPV Vaccine (1 - 3-dose series) [facility] Start: 07-24-2017 Peds To Adult Transi tion Annual Assessment Peds To Adult Transition Annual Assessment [facility] Start: 2015 Peds To Adult Transi tion Initial Discussion Peds To Adult Transition Initial Discussion [facility] Start: 07-24-2014 Urine microalbumin profile DTaP,Tdap,Td Vaccine (5 - Tdap) [facility] Bacteria identified in Urine by Culture BACTERIAL CULTURE, URINE Microbiology Routine Urinary frequency Ordered: 05/24/2024 [facility] Work Phone: Comment on above: Ordered: 05/24/2024 Immunizations Immunization Date Immunization Notes Care Provider Yfn goddard 09-08-2015 meningococcal polysaccharide (groups A, C, Y and W-135) diphtheria toxoid conjugate vaccine (MCV4P) Tanisha Bauman APRN.LOGISTICS CENTER MANAGER Work Phone: [facility] 01-14-2011 influenza, seasonal, injectable, preservative free Tainsha Bauman APRN.LOGISTICS CENTER MANAGER Work Phone: [facility] 01-14-2011 tetanus toxoid, redu lachelle diphtheria toxoid, and acellular pertussis vaccine, adsorbed Tanisha Bauman APRN.LOGISTICS CENTER MANAGER Work Phone: [facility] 01-14-2011 varicella virus vaccine Missy Bauman APRN.LOGISTICS CENTER MANAGER Work Phone: [facility] 01-14-2011 influenza virus vacc ine, unspecified formulation Tanisha Bauman APRN.LOGISTICS CENTER MANAGER Work Phone: [facility] 07-10-2009 haemophilus influenz ae type b vaccine, PRP-T conjugate Tanisha Bauman APRN.LOGISTICS CENTER MANAGER Work Phone: [facility] 06-17-2009 diphtheria, tetanus toxoids and acellular pertussis vaccine Tanisha Bauman APRN.LOGISTICS CENTER MANAGER Work Phone: [facility] 06-17-2009 DTaP-hepatitis B and poliovirus vaccine Tanisha Bauman APRN.LOGISTICS CENTER MANAGER Work Phone: [facility] 01-09-2009 haemophilus influenz ae type b vaccine, PRP-T conjugate Tanisha Bauman APRN.LOGISTICS CENTER MANAGER Work Phone: [facility] 01-09-2009 influenza virus vacc ine, whole virus Tanisha James SQUARE CUTTER.LOGISTICS CENTER MANAGER Work Phone: [facility] 12-10-2008 diphtheria, tetanus toxoids and acellular pertussis vaccine Tanishaaixa Bauman APRN.LOGISTICS CENTER MANAGER Work Phone: [facility] 12-10-2008 DTaP-hepatitis B and poliovirus vaccine Tanisha Bauman APRN.LOGISTICS CENTER MANAGER Work Phone: [facility] 11-07-2008 haemophilus influenz ae type b vaccine, PRP-T conjugate Tanisha James SQUARE CUTTER.LOGISTICS CENTER MANAGER Work Phone: [facility] 10-10-2008 diphtheria, tetanus toxoids and acellular pertussis vaccine Tanishaaixa Bauman APRN.LOGISTICS CENTER MANAGER Work Phone: [facility] 10-10-2008 DTaP-hepatitis B and poliovirus vaccine Tanisha Bauman APRN.LOGISTICS CENTER MANAGER Work Phone: [facility] 09-09-2008 haemophilus influenz ae type b vaccine, PRP-T conjugate Tanisha Bauman SQUARE CUTTER.LOGISTICS CENTER MANAGER Work Phone: [facility] 08-13-2008 diphtheria, tetanus toxoids and acellular pertussis vaccine Tanishaaixa Bauman APRN.LOGISTICS CENTER MANAGER Work Phone: [facility] 08-13-2008 DTaP-hepatitis B and poliovirus vaccine Tanishaaixa Bauman APRN.LOGISTICS CENTER MANAGER Work Phone: [facility] 08-13-2008 haemophilus influenz ae type b vaccine, PRP-T conjugate Tanisha Bauman APRN.LOGISTICS CENTER MANAGER Work Phone: [facility] 08-13-2008 varicella virus vaccine Missy Bauman APRN.LOGISTICS CENTER MANAGER Work Phone: [facility] 02-14-2008 influenza, seasonal, injectable, preservative free Tanisha Bauman APRN.LOGISTICS CENTER MANAGER Work Phone: [facility] 01-11-2008 influenza, seasonal, injectable, preservative free Tanisha Terrell JOHNS.LOGISTICS CENTER MANAGER Work Phone: [facility] Payers Date Payer Category Payer Self-pay [id number] 2023 Private Health Insurance [facility] [employer] CHOICE PLUS [id number] 2023 Unknown [id number] Private Health Insurance [facility] [id number] Unknown ANTHEM [id number] Unknown [facility] [id number] Unknown [employer] [id number] Unknown [id number] Unknown [id number] Unknown [id number] Unknown [id number] Unknown [id number] Unknown [id number] Unknown [id number] Social History Date Type Detail Facility Start: [facility]31[facility]2022 [facility] Start: 2003 Sex Assigned At Female [facility] Start: 03-08-2023 Tobacco smoking stat [facility] Never smoked tobacco [facility] Start: 03-08-2023 Tobacco use and exposure Smokeless tobacco non-user [facility] Start: 05-24-2024 Alcoholic beverage intake Not Asked [facility] Start: 02-19-2020 End: 05-24-2024 History of Social function [facility] Start: 02-19-2020 End: 05-24-2024 Tobacco use panel [facility] National Score (1-10 0), lower number is lower risk Not on file [facility] Start: 2003 Sex assigned at Not on file [facility] Telephone encounter Note 05-26-2024 Telephone Encounter - Aleta Hassan MA - 05/26/2024 12:15 PM EDT Note Date & Type Note Facility 05-26-2024 Telephone encount er Note Patient given results and verbalized understanding of instructions given. Aleta Hassan MA [facility] Note 05-26-2024 Telephone Encounter - Aleta Hassan MA - 05/26/2024 12:15 PM EDTTelephone Encounter - Cassie Corrigan OCCA - 05/26/2024 9:37 AM EDT Note Date & Type Note Facility 05-26-2024 Miscellaneous Notes Formattin g of this note might be different from the original. Patient given results and verbalized understanding of instructions given. Aleta Hassan MA TC to patient/mother with no answer. Left VM to return call to review results. OLLIE Perry Please contact patient and let her know that urine culture was negative for UTI. Please follow-up with PCP for persistent symptoms documented in this encounter [facility] Telephone encounter Note 05-26-2024 Telephone Encounter - Cassie Corrigan OCCA - 05/26/2024 9:37 AM EDT Note Date & Type Note Facility 05-26-2024 Telephone encount er Note TC to patient/mother with no answer. Left VM to return call to review results. OLLIE Perry [facility] Telephone encounter Note 05-26-2024 Telephone Encounter - Guillermo Horta PA - 05/26/2024 8:08 AM EDT Note Date & Type Note Facility 05-26-2024 Telephone encounter Note Please contact patient and let her know that urine culture was negative for UTI. Please follow-up with PCP for persistent symptoms [facility] Work Phone: Progress note 05-24-2024 Note Date & Type Note Facility 05-24-2024 Note HNO ID: [id number] Author: TANISHA BAUMAN APRN.LOGISTICS CENTER MANAGER Service: ? Author Type: Nurse Practitioner Type: Progress Notes Filed: 05/24/2024 15:07 Note Text: CORINA Saeed is a 18 year old female. Patient presents with: UTI: Frequency, painful urination, upset stomach x last night Patient came in with complaints of urinary frequency and abdominal cramping. Patient says she did have her period last month. Patient denies any risk of STDs. Patient denies any pain when urinating. Patient denies any vaginal itching or odor or discharge. Patient says she does have an active hemorrhoid that is bleeding on and off. The history is provided by the patient. No hide curer was used. UTI Associated symptoms include frequency. Review of Systems Constitutional: Negative. HENT: Negative. Genitourinary: Positive for frequency. Objective BP 138/91 Pulse 106 Temp 37.3 ?C (99.1 ?F) Resp 18 Wt 48.4 kg (106 lb 11.2 oz) LMP 04/17/2024 (Exact Date) SpO2 98% Physical Exam Constitutional: Appearance: Normal appearance. Eyes: Pupils: Pupils are equal, round, and reactive to light. Cardiovascular: Rate and Rhythm: Normal rate and regular rhythm. Heart sounds: Normal heart sounds. Pulmonary: Effort: Pulmonary effort is normal. Breath sounds: Normal breath sounds. Abdominal: General: Abdomen is flat. Palpations: Abdomen is soft. Tenderness: There is no abdominal tenderness. There is no right CVA tenderness, left CVA tenderness or guarding. Neurological: Mental Status: She is alert. No past medical history on file. PAST SURGICAL HISTORY Procedure Laterality Date PAST SURGICAL HISTORY OF trigger finger release age 1 ALLERGIES Patient has no known allergies. MEDICATIONS buPROPion XL (WELLBUTRIN XL) 300 mg 24 hr tablet traZODone (DESYREL) 50 mg tablet diphenoxylate-atropine (LOMOTIL) 2.5-0.025 mg per tablet ASHLYNA 0.15 mg-30 mcg (84)/10 mcg (7) Take 1 tablet by mouth. hydrALAZINE (APRESOLINE) 100 mg tablet Take 100 mg by mouth two times a day. (Patient not taking: Reported on 05/24/2024) metroNIDAZOLE (FLAGYL) 500 mg tablet Take 1 tablet by mouth twice daily. (Patient not taking: Reported on 05/24/2024) flunisolide 80 mcg/actuation HFAA Inhale as instructed. (Patient not taking: Reported on 05/24/2024) hydrOXYzine HCl (ATARAX) 25 mg tablet Take 25 mg by mouth three times daily as needed. (Patient not taking: Reported on 05/24/2024) montelukast chewable (SINGULAIR) 5 mg chewable tablet Take 5 mg by mouth daily at bedtime. (Patient not taking: Reported on 05/24/2024) predniSONE (DELTASONE) 10 mg tablet Take 3 tablets once daily by mouth for 3 days, then 2 tablets daily for 3 days then 1 tablet daily for 3 days. (Patient not taking: Reported on 05/24/2024) BECLOMETHASONE DIPROPIONATE (QVAR INHALATION) Inhale as instructed. (Patient not taking: Reported on 05/24/2024) LANSOPRAZOLE (PREVACID ORAL) Take by mouth. (Patient not taking: Reported on 05/24/2024) ALBUTEROL INHALATION Inhale as instructed. (Patient not taking: Reported on 05/24/2024) FAMILY HISTORY Problem Relation Age of Onset Stroke Father Social History Tobacco Use Smoking status: Never Smokeless tobacco: Never ASSESSMENT/PLAN: 1. Urinary frequency - ICD9: 788.41, ICD10: R35.0 acute - Patient education for prevention given - UA DIP, URINE (POC) - BACTERIAL CULTURE, URINE Patient will follow-up with primary care. If patient's urine culture is positive please prescribe appropriately. Patient large amount of blood was more than likely caused by her hemorrhoid. Tanisha Bauman APRN.LOGISTICS CENTER MANAGER [facility] History of Present illness Narrative 05-24-2024 Tanisha Bauman APRN.RAFY - 05/24/2024 2:27 PM EDT Note Date & Type Note Facility 05-24-2024 History of Presen t illness Narrative [facility] Mariangel Saeed is a 18 year old female. Patient presents with: UTI: Frequency, painful urination, upset stomach x last night Patient came in with complaints of urinary frequency and abdominal cramping. Patient says she did have her period last month. Patient denies any risk of STDs. Patient denies any pain when urinating. Patient denies any vaginal itching or odor or discharge. Patient says she does have an active hemorrhoid that is bleeding on and off. The history is provided by the patient. No hide curer was used. UTI Associated symptoms include frequency. Review of Systems Constitutional: Negative. HENT: Negative. Genitourinary: Positive for frequency. Objective BP 138/91 Pulse 106 Temp 37.3 C (99.1 F) Resp 18 Wt 48.4 kg (106 lb 11.2 oz) LMP 04/17/2024 (Exact Date) SpO2 98% Physical Exam Constitutional: Appearance: Normal appearance. Eyes: Pupils: Pupils are equal, round, and reactive to light. Cardiovascular: Rate and Rhythm: Normal rate and regular rhythm. Heart sounds: Normal heart sounds. Pulmonary: Effort: Pulmonary effort is normal. Breath sounds: Normal breath sounds. Abdominal: General: Abdomen is flat. Palpations: Abdomen is soft. Tenderness: There is no abdominal tenderness. There is no right CVA tenderness, left CVA tenderness or guarding. Neurological: Mental Status: She is alert. No past medical history on file. PAST SURGICAL HISTORY Procedure Laterality Date PAST SURGICAL HISTORY OF trigger finger release age 1 ALLERGIES Patient has no known allergies. MEDICATIONS buPROPion XL (WELLBUTRIN XL) 300 mg 24 hr tablet traZODone (DESYREL) 50 mg tablet diphenoxylate-atropine (LOMOTIL) 2.5-0.025 mg per tablet ASHLYNA 0.15 mg-30 mcg (84)/10 mcg (7) Take 1 tablet by mouth. hydrALAZINE (APRESOLINE) 100 mg tablet Take 100 mg by mouth two times a day. (Patient not taking: Reported on 05/24/2024) metroNIDAZOLE (FLAGYL) 500 mg tablet Take 1 tablet by mouth twice daily. (Patient not taking: Reported on 05/24/2024) flunisolide 80 mcg/actuation HFAA Inhale as instructed. (Patient not taking: Reported on 05/24/2024) hydrOXYzine HCl (ATARAX) 25 mg tablet Take 25 mg by mouth three times daily as needed. (Patient not taking: Reported on 05/24/2024) montelukast chewable (SINGULAIR) 5 mg chewable tablet Take 5 mg by mouth daily at bedtime. (Patient not taking: Reported on 05/24/2024) predniSONE (DELTASONE) 10 mg tablet Take 3 tablets once daily by mouth for 3 days, then 2 tablets daily for 3 days then 1 tablet daily for 3 days. (Patient not taking: Reported on 05/24/2024) BECLOMETHASONE DIPROPIONATE (QVAR INHALATION) Inhale as instructed. (Patient not taking: Reported on 05/24/2024) LANSOPRAZOLE (PREVACID ORAL) Take by mouth. (Patient not taking: Reported on 05/24/2024) ALBUTEROL INHALATION Inhale as instructed. (Patient not taking: Reported on 05/24/2024) FAMILY HISTORY Problem Relation Age of Onset Stroke Father Social History Tobacco Use Smoking status: Never Smokeless tobacco: Never ASSESSMENT/PLAN: 1. Urinary frequency - ICD9: 788.41, ICD10: R35.0 acute - Patient education for prevention given - UA DIP, URINE (POC) - BACTERIAL CULTURE, URINE Patient will follow-up with primary care. If patient's urine culture is positive please prescribe appropriately. Patient large amount of blood was more than likely caused by her hemorrhoid. Tanisha Bauman APRN.LOGISTICS CENTER MANAGER [facility] Procedures documented in this encounter [facility] Evaluation note Note Date & Type Note Facility Evaluation note No assessment information availa [facility] Work Phone: Evaluation note Note Date & Type Note Facility Evaluation note Diagnosis Urinary frequency- Primary documented in this encounter [facility] Summary Purpose Family History Relationship Condition Age at Onset Recorded Date/T cody father Cerebrovascular accident (CVA) Unknown mother Diabetes mellitus Unknown Hypertension Unknown Anemia Unknown Advance Directives No Advanced Directives Records FoundNo Advanced Directives Records FoundNo Advanced Directives Records Found Chief Complaint and Reason for Visit Chief Complaint CERVICALGIA HEADACHE S / RX HERE Additional Source Comments INFORMATION SOURCE (unrecogn ized section and content) DATE CREATED AUTHOR 04/22/2020 [facility] DATE CREATED AUTHOR AUTHOR'S ORGANIZ ATION 05/27/2024 [facility] DATE CREATED AUTHOR AUTHOR'S ORGANIZ ATION 07/17/2024 [facility] Care Teams (unrecognized sec tion and content) Team Status: Active Member Role Status Dates Dr. Saima Mcmillan MD Family Provider Active Dr. Zoe Black DO Primary Care Provider Active Team Status: Active Member Role Status Dates Dr. Zoe Black DO Primary Care Provide r, Attending Provider, Referring Provider Active Team Status: Inactive Member Role Status Dates Dr. 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 Relationship Specialty Start Date End Date Joey Coughlin MD [address] [place] [address] PCP - General Internal Medicine 05/24/24 Tree Climber Relationship Specialty Start Date End Date Joey Coughlin MD [address] [place] [address] PCP - General Internal Medicine 05/24/24 Goals (unrecognized section and content) Goals may be documented in a n alternate sectionGoals may be documented in an alternate section Source Comments (unrecognize d section and content) In the event this informatio n is protected by the Federal Confidentiality of Alcohol and Drug Abuse Patient Records regulations: The Federal rules restrict any use of the information to criminally investigate or prosecute any alcohol or drug abuse patient.[facility] the event this information is protected by the Federal Confidentiality of Alcohol and Drug Abuse Patient Records regulations: The Federal rules restrict any use of the information to criminally investigate or prosecute any alcohol or drug abuse patient.[facility] Reason for Visit (unrecogniz ed section and content) Reason Comments UTI Frequency, painful u rination, upset stomach x last night FOR RECORDS PERTAINING TO PATIENTS WHO ARE [...] BE BASED ON THE PRIMARY CLINICAL RECORDS. [facility]. provides no warranty or guarantee of the accuracy or completeness of information in this document.
--- NOTE | 2024-09-10 07:37 | EX.ED.DYSGE1 ---
HPI History of Present Illness Chief Complaint: Constipation Informant: patient and parent Narrative Narrative: Patient is a 19-year-old female with past med history of generalized anxiety disorder as well as IBS. She states that she has not had a bowel movement since Monday and even that bowel movement was small in nature and hard and painful. She states she feels the urge to defecate but it is too painful to perform the action. She states she has required enemas in the past and therefore presents to the ER for treatment. [facility] Medical History Acute otitis externa of right ear SANDRO (generalized anxiety disorder) Hematuria Dysuria Asthma Fatigue Migraines Home Medications ?Medication ?Instructions ?Recorded ?Last Taken ?Type albuterol sulfate 2.5 mg/3 mL 2.5 mg inhalation Q4H PRN 05/30/23 Unknown History (0.083 %) solution for nebulization shortness of breath or wheezing albuterol sulfate 90 mcg/actuation 2 inh inhalation Q4H PRN shortness 05/30/23 Unknown History aerosol inhaler of breath or wheezing levonorgestrel-ethinyl estradiol 1 tab PO QDAY 05/30/23 Unknown History 0.1 mg-20 mcg tablet trazodone 50 mg tablet 50 mg PO QHS 05/30/23 Unknown History bupropion HCl 300 mg 24 hr tablet, 300 mg PO QAM 90 days #90 tabs 04/17/24 Unknown Rx extended release diphenoxylate-atropine 2.5 1 tab PO BID 04/17/24 Unknown History mg-0.025 mg tablet docusate sodium 100 mg capsule 200 mg (2 x 100 mg) PO BID 7 days 09/10/24 Unknown Rx (Colace) #28 caps ondansetron 4 mg disintegrating 4 mg PO TID PRN nausea and 09/10/24 Unknown Rx tablet vomiting #21 tabs polyethylene glycol 3350 17 17 g PO BID 10 days #340 grams 09/10/24 Unknown Rx gram/dose oral powder (Miralax) Allergy/AdvReac Type Severity Reaction Status Date / Time No Known Allergies Allergy Verified 09/10/24 06:30 Family History Father CVA (cerebral vascular accident) Mother Diabetes Hypertension Anemia Social History Smoking Status: Current every day smoker tobacco type: e-cigarettes alcohol intake: never ROS ROS ED Constitutional Constitutional ED: Denies chills or fever(s) ENT ENT ED: Denies sore throat Cardiovascular Cardiovascular: Denies chest pain Respiratory/Chest Respiratory/Chest: Denies cough or dyspnea Gastrointestinal Gastrointestinal: Reports abdominal pain, constipation, nausea and vomiting; Denies diarrhea or melena Genitourinary Genitourinary ED: Denies dysuria Musculoskeletal Musculoskeletal: Denies back pain or myalgias Integumentary Denies rash Neurologic Neurologic: Denies headache(s) Psychiatric Psychiatric: Reports anxiety Hematologic/Lymphatic Hematologic/Lymphatic: Denies easy bleeding or easy bruising EXAM Physical Exam Const Vital Signs: 09/10/24 06:29 Temperature 98.2 F Temperature Source Oral Pulse Rate 97 Respiratory Rate 16 Blood Pressure 130/91 H Blood Pressure Mean 104 Pulse Ox 100 Positive well nourished and well developed General Appearance ED: well developed; Negative for pallor HEENT Reports moist mucous membranes HEENT Narrative: Normocephalic atraumatic No tongue or lip swelling no oral lesions no airway edema or compromise No secondary findings in the posterior pharynx to suggest infection Eyes PERRL and EOMs intact bilaterally General Eye ED: Negative for scleral icterus Neck supple Resp normal respiratory effort and clear to auscultation bilaterally Cardio regular rate and regular rhythm GI non-distended and no masses GI Narrative: Abdomen is soft and nondistended with hypoactive bowel sounds. There is mild diffuse pain on palpation without voluntary guarding or rigidity. No pulsatile mass or fluid wave. No organomegaly noted Auscultation: hypoactive bowel sounds Palpation: soft Narrative: Patient deferred rectal exam Extremity normal to inspection Neuro oriented x3 and CN's II-XII intact bilaterally Sensorium / Orientation: alert Motor Exam: strength 5/5 throughout Psych Mood & Affect: anxious Skin no rashes or lesions noted and no wounds General Skin Exam: Negative for jaundice or pallor MDM MDM MDM Narrative Medical decision making narrative: Patient arrived to the ER with stable vitals and a soft nonsurgical abdomen. She reports a longstanding history of IBS fluctuating between bouts of constipation and diarrhea. Her history and exam is most consistent with IBS-C at this time and does not show findings concerning for acute infection such as appendicitis diverticulitis/colitis. Nor other findings concerning for intestinal abscess ileus or obstruction. I discussed with patient options of manual disimpaction versus oral medication versus enema. Patient did request a enema be given as this has helped her in the past. After receiving a soapsuds enema patient reported that there was mild improvement of symptoms and she was able to pass some stool. I did offer a manual disimpaction at this time and/or another enema. She states at this time she does not want any further intervention performed such as disimpaction or enema but believes she would benefit from magnesium citrate. Therefore this was provided in the ER and she was given prescriptions for Colace and MiraLAX to help prevent further bouts of constipation. However as her history and exam is most consistent with constipation and not a obstruction or infection there is no need for further intervention or imaging and she is otherwise safe for discharge History & Record Review Discussion w/independent historian: Patient and Family Discharge Plan Triage Chief Complaint: Constipation ED Provider: Darryl Harden Dx/Rx/DC Orders Clinical Impression: IBS (irritable bowel syndrome), Constipation, SANDRO (generalized anxiety disorder) Instructions: ED Constipation (Adult), ED Irritable Bowel Syndrome Prescriptions: New docusate sodium [Colace] 100 mg capsule 200 mg PO BID 7 Days Qty: 28 0RF polyethylene glycol 3350 [Miralax] 17 gram/dose powder 17 g PO BID 10 Days Qty: 340 0RF ondansetron 4 mg tablet,disintegrating 4 mg PO TID PRN (Reason: nausea and vomiting) Qty: 21 0RF No Action albuterol sulfate 90 mcg/actuation HFA aerosol inhaler 2 inh inhalation Q4H PRN (Reason: shortness of breath or wheezing) levonorgestrel-ethinyl estrad 0.1-20 mg-mcg tablet 1 tab PO QDAY albuterol sulfate 2.5 mg /3 mL (0.083 %) solution for nebulization 2.5 mg inhalation Q4H PRN (Reason: shortness of breath or wheezing) trazodone 50 mg tablet 50 mg PO QHS diphenoxylate-atropine 2.5-0.025 mg tablet 1 tab PO BID bupropion HCl 300 mg tablet extended release 24 hr 300 mg PO QAM 90 Days Qty: 90 1RF Primary Care Provider: Joey Jauregui Referrals: Joey Jauregui MD [Primary Care Provider] - Activity Restrictions/Additional Instructions: Please drink half the bottle of magnesium citrate once you return home. If there is no bowel movement within 4 hours after drinking the medication then you may finish the bottle. After the magnesium citrate stimulates multiple bowel movements today please help prevent bouts of constipation by taking Colace twice a day and also using the MiraLAX twice a day for the next 3 to 5 days. You may reduce the medication to once a day once stools become watery. Please keep yourself well-hydrated and return to the ER should you have any further concerns Print Language: Slovenian Disposition Disposition: Home, Self Care
[2024-09-10] MEDS: Magnesium Citrate 300 ML PO (07:59)
[2024-09-10 08:07] VITALS: BP 115/78; PULSE 64; RESP 18; TEMP 37.1; O2SAT 99
== END 2024-09-10 08:07 | disposition home or self-care (01) ==
PROVIDERS: Emergency Provider Emergency Medicine; PCP Family Medicine; Visit Provider Emergency Medicine
DX: K58.1 Irritable bowel syndrome with constipation (principal); F41.1 Generalized anxiety disorder; J45.909 Unspecified asthma, uncomplicated; F17.290 Nicotine dependence, other tobacco product, uncomplicated; Z79.899 Other long term (current) drug therapy
CPT/HCPCS: 99284

== ENCOUNTER → 2024-10-25 | Outpatient (CLI) | payer OTHER, SELFPAY ==
--- NOTE | 2024-10-25 16:32 | RAD_ITS ---
PROCEDURE: LUMBAR SPINE 2 OR 3 VIEWS 10/25/2024 REASON FOR EXAM: LOW BACK PAIN TECHNIQUE: LUMBAR SPINE 2 OR 3 VIEWS COMPARISON: None. FINDINGS: Vertebrae: No acute fractures. Discs: Disc levels are unremarkable. Alignment: Normal alignment. RAD/Lumbar Spine 2 or 3 Views IMPRESSION: Unremarkable x-ray of the lumbar spine. Reading Location: [id number]
[2024-10-25 18:15] LABS: AST(SGOT) 23 U/L (<=31); Alanine Aminotransfer ALT/SGPT 24 U/L (<=34); Albumin, Serum 4.8 g/dL (3.5-5.0); Alkaline Phosphatase 66 U/L (35-104); Anion Gap 14 (5-15); BUN 11 mg/dL (4-19); BUN/Creat Ratio 13.5 RATIO (10-20); Calcium,Total 9.9 mg/dL (7.6-11.0); Carbon Dioxide 21.9 mmol/L (21.0-32.0); Chloride 104 mmol/L (98-108); Globulin 2.8 g/dL (2.2-4.2); Glucose 115 mg/dL (70-99); Potassium 3.7 mmol/L (3.3-5.1); Vitamin D,25 Hydroxy 113.0 ng/mL (30-100)
== END | disposition home or self-care (01) ==
PROVIDERS: PCP Family Medicine; Referring Provider Family Medicine; Visit Provider Family Medicine
DX: M54.50 Low back pain, unspecified (principal); M79.673 Pain in unspecified foot
CPT/HCPCS: 36415; 72100; 80053; 82306

== ENCOUNTER → 2024-11-27 | Outpatient (CLI) | payer OTHER, SELFPAY ==
--- NOTE | 2024-11-27 14:02 | NEURO ---
NCS and/or EMG Patient Report Ordering Doctor: Joey Jauregui DATE OF SERVICE: 11/27/24 Mariangel presents with complaints of pain and tightness in the thighs and legs. She reports a heavy feeling in the legs. She reports intermittent lower back pain. Electrodiagnostic findings: Normal peroneal and tibial motor studies. Normal peroneal and tibial F?waves. H?reflex normal bilaterally. Sensory responses within normal limits. Needle EMG testing was performed in the lower limbs. All muscles tested showed no evidence of denervation with normal motor unit action potentials. Electrodiagnostic impression: This is a normal electrodiagnostic study in the lower limbs. There is no electrodiagnostic evidence for peripheral neuropathy or lumbosacral radiculopathy. There is no evidence for myopathy. Multi Select Codes Neurology Neurology Interp Codes: 53358-92 Musc test done w/n test comp (interp) (2) and 87545-54 Nrv cndj test 11-12 studies (interp)
== END | disposition home or self-care (01) ==
LOC: PSN 12:11
PROVIDERS: PCP Family Medicine; Referring Provider Family Medicine; Visit Provider Family Medicine
DX: M54.50 Low back pain, unspecified (principal)
CPT/HCPCS: 95886; 95912

== ENCOUNTER → 2024-11-27 | Outpatient (CLI) | payer OTHER, SELFPAY ==
--- OUTSIDE RECORDS SUMMARY | 2024-11-27 21:03 | XMS RPT_ITS | CCD ---
Author Organization [facility] Care Team Providers Care Minister Of Religion Name Role Phone Madyson LAI, Joey Primary Care Provider Madyson, Chalon Primary Care Unavailable Madyson, Chalon Attending Unavailable Madyson, Chalon Referring Unavailable Madyson, Chalon Primary Care Unavailable Atanasov, Ciara Attending Unavailable Atanasov, Ciara Referring Unavailable Madyson, Chalon Primary Care Unavailable Madyson, Sulyon Attending Unavailable Madyson, Chalon Referring Unavailable Madyson, Chalon Attending Unavailable Madyson, Chalon Referring Unavailable Madyson, Chalon Primary Care Unavailable Madyson, Chalon Primary Care Unavailable Darryl Harden Attending Unavailable Madyson, Chalon Primary Care Unavailable Madyson, Chalon Attending Unavailable SeeMomo louise Attending Unavailable Madyson, Chalon Primary Care Unavailable Nilda Ghosh Attending Unavailable Madyson, Chalon Primary Care Unavailable Shawna Kevin Attending Unavailable Madyson, Chalon Referring Unavailable Madyson, Chalon Primary Care Unavailable SeeseMomo Attending Unavailable Madyson, Chalon Primary Care Unavailable Momo Keane Attending Unavailable Madyson, Chalon Primary Care Unavailable Madyson, Chalon Primary Care Unavailable Thomnasov, Ciara Attending Unavailable Madyson, Chalon Referring Unavailable Atanasov, Ciara Attending Unavailable Madyson, Chalon Referring Unavailable Madyson, Chalon Primary Care Unavailable Medications Current Medications [...] 500 MG PO THREE TIMES A DAY 30 09May 07, 2021 1:00am January 31, 2022 3:56pm [...] Monohyd/M-Cryst Discontinued 1 CAP PO Q12H 14 7 March 23, 2021 1:00am March 30, 2021 1:01am administer with a meal/food; swallow whole; do not open, crush, dissolve , or chew Problems Problem Classification Problem Date Documented Da te Episodic/Chronic Abdominal pain (4 sources) Right flank pain; Translations: [Unspecified abdominal pain] 05-15-2021 Episodic Anxiety disorders (1 source) Generalized anxiety disorder; Translations: [Generalized anxiety disorder] Onset: 04-17-2024 Chronic Attention-deficit, conduct, and disruptive behavior disorders (1 source) Attention-deficit hyperactivity disorder, unspecified type; Translations: [Attention-deficit hyperactivity disorder, unspecified type] Onset: 11-26-2024 Chronic Genitourinary symptoms and ill-defined conditions (5 sources) Blood in urine; Translations: [Hematuria, unspecified] 01-31-2022 Episodic Nausea and vomiting (1 source) Nausea; Translations: [Nausea] Onset: 10-22-2024 Episodic Other gastrointestinal disorders (1 source) Irritable bowel syndrome without diarrhea; Translations: [Irritable bowel syndrome, unspecified] Onset: 10-22-2024 Chronic Other gastrointestinal disorders (1 source) Irritable bowel syndrome with diarrhea; Translations: [Irritable bowel syndrome with diarrhea] Onset: 03-21-2024 Chronic Other gastrointestinal disorders (1 source) Constipation, unspecified; Translations: [Constipation, unspecified] Onset: 09-16-2024 Episodic Other upper respiratory infections (4 sources) Acute upper respiratory infection; Translations: [Acute upper respiratory infection, unspecified] 04-09-2018 Episodic Unclassified (2 sources) Low back pain, unspecified; Translations: [Low back pain, unspecified] Onset: 11-01-2024 Urinary tract infections (2 sources) Urinary tract infectious disease; Translations: [Urinary tract infection, site not specified] 03-23-2021 Episodic Results Test Name Value Interpretation Reference Range Facility Comprehensive Metabolic Prof vazquez 10-25-2024 Albumin [Mass/Vol] 4.8 g/dL Normal 3.5-5.0 [facility] Comment on above: Performed By: #### L 500.4050, L506.1001 #### [facility] [address] [place], [address] Albumin/Globulin [Mass ratio] 1.7 {ratio} Normal 0.9-2.4 [facility] Comment on above: Performed By: #### L 500.4050, L506.1001 #### [facility] [address] [place], [address] ALK PHOS 66 U/L Normal 35-104 [facility] Comment on above: Performed By: #### L 500.4050, L506.1001 #### [facility] [address] [place], [address] ALT [Catalytic activity/Vol] 24 U/L Normal <=34 [facility] Comment on above: Performed By: #### L 500.4050, L506.1001 #### [facility] [address] [place], [address] AST [Catalytic activity/Vol] 23 U/L Normal <=31 [facility] Comment on above: Performed By: #### L 500.4050, L506.1001 #### [facility] [address] [place], [address] Bilirubin [Mass/Vol] 0.49 mg/dL Normal 0.00-1.30 [facility] Comment on above: Performed By: #### L 500.4050, L506.1001 #### [facility] [address] [place], [address] BUN/CRE 13.5 RATIO Normal 10-20 [facility] Comment on above: Performed By: #### L 500.4050, L506.1001 #### [facility] [address] [place], [address] Calcium [Mass/Vol] 9.9 mg/dL Normal 7.6-11.0 [facility] Comment on above: Performed By: #### L 500.4050, L506.1001 #### [facility] [address] [place], [address] Chloride [Moles/Vol] 104 mmol/L Normal 98-108 [facility] Comment on above: Performed By: #### L 500.4050, L506.1001 #### [facility] [address] [place], [address] CO2 [Moles/Vol] 21.9 mmol/L Normal 21.0-32.0 [facility] Comment on above: Performed By: #### L 500.4050, L506.1001 #### [facility] [address] [place], [address] Creatinine [Mass/Vol] 0.82 mg/dL Normal 0.70-1.20 [facility] Comment on above: Performed By: #### L 500.4050, L506.1001 #### [facility] [address] [place], [address] GAP 14 Normal 5-15 [facility] Comment on above: Performed By: #### L 500.4050, L506.1001 #### [facility] [address] [place], [address] GFR/1.73 sq M.predicted among non-blacks MDRD (S/P/Bld) [Vol rate/Area] 104 mL/min/{1.73_m2} Normal >60 [facility] Comment on above: Result Comment: mL/m in/1.73m2 CKD-EPI Creatinine Equation (2020) Performed By: #### L 500.4050, L506.1001 #### [facility] [address] [place], [address] Globulin (S) [Mass/Vol] 2.8 g/dL Normal 2.2-4.2 [facility] Comment on above: Performed By: #### L 500.4050, L506.1001 #### [facility] [address] [place], [address] Glucose [Mass/Vol] 115 mg/dL High 70-99 [facility] Comment on above: Performed By: #### L 500.4050, L506.1001 #### [facility] [address] [place], [address] Potassium [Moles/Vol] 3.7 mmol/L Normal 3.3-5.1 [facility] Comment on above: Performed By: #### L 500.4050, L506.1001 #### [facility] [address] [place], [address] Sodium [Moles/Vol] 139 mmol/L Normal 133-145 [facility] Comment on above: Performed By: #### L 500.4050, L506.1001 #### [facility] [address] [place], [address] T PROT 7.6 g/dL Normal 5.9-8.4 [facility] Comment on above: Performed By: #### L 500.4050, L506.1001 #### [facility] [address] [place], [address] Urea nitrogen [Mass/Vol] 11 mg/dL Normal 4-19 [facility] Comment on above: Performed By: #### L 500.4050, L506.1001 #### [facility] [address] [place], [address] Lumbar Spine 2 or 3 Viewson 10-25-2024 Lumbar Spine 2 or 3 Views [facility] Imaging Services [address] [place] [address] Lumbar Spine 2 or 3 Views MR#: [id number] Acct: [id number] Name: MARIANGEL SAEED Rep #: [id number] : 2005 F 19 From: Lauro Morataya MD PCP: Dr. Joey Jauregui MD Status: REG CLI Study: Lumbar Spine 2 or 3 Views Date of Exam: Exam# [id number] Ordering Dr: Joey Jauregui MD PROCEDURE: LUMBAR SPINE 2 OR 3 VIEWS 10/25/2024 REASON FOR EXAM: LOW BACK PAIN TECHNIQUE: LUMBAR SPINE 2 OR 3 VIEWS COMPARISON: None. FINDINGS: Vertebrae: No acute fractures. Discs: Disc levels are unremarkable. Alignment: Normal alignment. RAD/Lumbar Spine 2 or 3 Views IMPRESSION: Unremarkable x-ray of the lumbar spine. Reading Location: [facility] CC: Dr. Joey Jauregui MD Patient Services Representative: Signed Normal [facility] Vitamin D,25 Hydroxyon 10-25 Vitamin D 25-OH 113.0 ng/mL High 30-100 [facility] Comment on above: Result Comment: Crystal min D Status Deficiency: <20 ng/mL (50nmol/L) Insufficiency: 20-30 ng/mL (50-75 nmol/L) Sufficiency: 30-100 ng/mL (75-250 nmol/L) Toxicity: >100 ng/mL (>250 nmol/L) Performed By: #### L 500.4050, L506.1001 #### [facility] [address] [place], [address] Gastroenterology Visit Repor ton 10-22-2024 Gastroenterology Visit Report [facility] [address] [place] [address] OFFICE VISIT Date of Service: 10/22/24 MR#: [id number] Acct: [id number] Name: MARIANGEL SAEED Rep #: [id number] : 2005 Provider: ANDREY Sanchez Age/Sex: 19/F Location: [facility] Status: Signed Intake Vital Signs 09/10/24 06:29 Height 5 ft Intake Visit Reasons: Irritable bowel syndrome Chief Complaint: Constipation Accompanied by: Mother Allergies No Known Allergies Allergy (Verified 09/10/24 06:30) Nurse's Note: OV 10/22/24 Pt here for a f/u and reports diarrhea, abdominal pain, gas, and bloating. [facility] Medical History Acute otitis externa of right ear SANDRO (generalized anxiety disorder) Hematuria Dysuria Asthma Fatigue Migraines Family History Father CVA (cerebral vascular accident) Mother Diabetes Hypertension Anemia Social History Smoking Status: Current every day smoker tobacco type: e-cigarettes alcohol intake: never HPI HPI Chief Complaint: Constipation Details: MARIANGEL SAEED, is a 19 F who presents to the office today for follow-up. OV 07.03.24 Pt has struggled with alternating bowels for [...] family hx of personal hx of autoimmune disease. Stool; calprotectin wnl Biochemical work up 07.09.24; CBC wnl, CMP wnl, CRP wnl, ESR wnl, IBD serology wnl, [facility] ED 7 with severe constipation OV 8 patient here today for ED follow-up. Since her ED visit she has discontinued daily Lomotil. Prior to presenting to the ED for severe constipation she was taking Lomotil 1 to 2 pills/day. Her bowel habits have normalized and she is having 1 formed bowel movement every other day. This feels normal to her. She is taking a daily fiber supplement. Her main concern is lower abdominal pain in the morning. It is not associated with eating or bowel movements. She is also having early satiety. ROS Const Constitutional: Positive for fatigue; No fever(s) or weight change ENT ENT: No difficulty swallowing Gastro GI: Positive for abdominal pain, bloating, constipation and excessive flatus; No belching, change in bowel habits, change in stool character, coffee ground emesis, cramping, diarrhea, heartburn, difficulty swallowing, feeling full early, incontinent of stools, Vomiting blood/hematemesis, Blood in stool, loose stools, Black,tarry stools, nausea/dyspepsia, pain with swallowing, vomiting or other Musc Musculoskeletal: Positive for joint pain, back pain and muscle cramps Skin Skin: Positive for dry skin and itchy eyes; No yellowing of the eye Psych Psychiatric: Positive for anxiety, No depression and Positive for inattentiveness Endo Endocrine: Positive for fatigue; No weight change Aller/Imm Allergy/Immunologic: Positive for itchy eyes Rodolfo/Lymp Hematologic/Lymphatic: Positive for easy bruising; No easy bleeding Exam Const General: cooperative, healthy appearing and comfortable Orientation: alert HENMT Head: normal to inspection Eyes General: appearance normal, both eyes and all related structures Neck Neck: normal visual inspection Chest Chest palpation inspection: normal inspection of the chest Resp Effort Inspection: normal respiratory effort GI Inspection: normal to inspection Assessment and Plan Assessment and Plan (1) IBS (irritable bowel syndrome): Status: Acute Plan: Mariangel is a 19-year-old female patient here today for ER follow-up. Patient originally established with clinic in June 2024 for alternating bowel habits with constipation and diarrhea. Calprotectin, CBC, CMP, CRP, ESR and IBD serology was all within normal limits. Patient recently presented to [facility] ED with severe constipation. This was likely related to taking Lomotil daily which was prescribed by her PCP for her chronic diarrhea. Since the ED she is no longer taking Lomotil. She is having a bowel movement every other day that is solid and formed. I encouraged continuing her fiber supplement. She may take Lomotil as needed but discouraged daily use as this can lead to constipation. Patient and her mother have concern over her early satiety. She will undergo gastric emptying study. Consider EGD and colonoscopy in the future if indicated. (more content not included)... Normal [facility] Emergency Department Summary on 09-10-2024 Emergency Department Summary [facility] Medical Records Department [address] [place] [address] Emergency Department Summary 09/10/24 MR#: [id number] Acct: [id number] Name: MARIANGEL SAEED Rep #: [id number] : 2005 19 From: Darryl Harden DO PCP: Dr. Joey Jauregui MD Status:REG ER Location: ED HPI History of Present Illness Chief Complaint: Constipation Informant: patient and parent Narrative Narrative: Patient is a 19-year-old female with past med history of generalized anxiety disorder as well as IBS. She states that she has not had a bowel movement since Monday and even that bowel movement was small in nature and hard and painful. She states she feels the urge to defecate but it is too painful to perform the action. She states she has required enemas in the past and therefore presents to the ER for treatment. [facility] Medical History Acute otitis externa of right ear SANDRO (generalized anxiety disorder) Hematuria Dysuria Asthma Fatigue Migraines Home Medications ???Medication ???Instructions ???Recorded ???Last Taken ???Type albuterol sulfate 2.5 mg/3 mL 2.5 mg inhalation Q4H PRN 05/30/23 Unknown History (0.083 %) solution for nebulization shortness of breath or wheezing albuterol sulfate 90 mcg/actuation 2 inh inhalation Q4H PRN shortne ss 05/30/23 Unknown History aerosol inhaler of breath or wheezing levonorgestrel-ethinyl estradiol 1 tab PO QDAY 05/30/23 Unknown His tory 0.1 mg-20 mcg tablet trazodone 50 mg tablet 50 mg PO QHS 05/30/23 Unknown Hist ory bupropion HCl 300 mg 24 hr tablet, 300 mg PO QAM 90 days #90 tabs 0 04/17/24 Unknown Rx extended release diphenoxylate-atropine 2.5 1 tab PO BID 04/17/24 Unknown Hist ory mg-0.025 mg tablet docusate sodium 100 mg capsule 200 mg (2 x 100 mg) PO BID 7 days 09/10/24 Unknown Rx (Colace) #28 caps ondansetron 4 mg disintegrating 4 mg PO TID PRN nausea and 07/01/2 5 Unknown Rx tablet vomiting #21 tabs polyethylene glycol 3350 17 17 g PO BID 10 days #340 grams 04/06 Unknown Rx gram/dose oral powder (Miralax) Allergy/AdvReac Type Severity Reaction Status Date / Time No Known Allergies Allergy Verified 09/10/24 06:30 Family History Father CVA (cerebral vascular accident) Mother Diabetes Hypertension Anemia Social History Smoking Status: Current every day smoker tobacco type: e-cigarettes alcohol intake: never ROS ROS ED Constitutional Constitutional ED: Denies chills or fever(s) ENT ENT ED: Denies sore throat Cardiovascular Cardiovascular: Denies chest pain Respiratory/Chest Respiratory/Chest: Denies cough or dyspnea Gastrointestinal Gastrointestinal: Reports abdominal pain, constipation, nausea and vomiting; Denies diarrhea or melena Genitourinary Genitourinary ED: Denies dysuria Musculoskeletal Musculoskeletal: Denies back pain or myalgias Integumentary Denies rash Neurologic Neurologic: Denies headache(s) Psychiatric Psychiatric: Reports anxiety Hematologic/Lymphatic Hematologic/Lymphatic: Denies easy bleeding or easy bruising EXAM Physical Exam Const Vital Signs: 09/10/24 06:29 Temperature 98.2 F Temperature Source Oral Pulse Rate 97 Respiratory Rate 16 Blood Pressure 130/91 H Blood Pressure Mean 104 Pulse Ox 100 Positive well nourished and well developed General Appearance ED: well developed; Negative for pallor HEENT Reports moist mucous membranes HEENT Narrative: Normocephalic atraumatic No tongue or lip swelling no oral lesions no airway edema or compromise No secondary findings in the posterior pharynx to suggest infection Eyes PERRL and EOMs intact bilaterally General Eye ED: Negative for scleral icterus Neck supple Resp normal respiratory effort and clear to auscultation bilaterally Cardio regular rate and regular rhythm GI non-distended and no masses GI Narrative: Abdomen is soft and nondistended with hypoactive bowel sounds. There is mild diffuse pain on palpation without voluntary guarding or rigidity. No pulsatile mass or fluid wave. No organomegaly noted Auscultation: hypoactive bowel sounds Palpation: soft Narrative: Patient deferred rectal exam Extremity normal to inspection Neuro oriented x3 and CN's II-XII intact bilaterally Sensorium / Orientation: alert Motor Exam: strength 5/5 throughout Psych Mood Affect: anxious Skin no rashes or lesions noted and no wounds General Skin Exam: Negative for jaundice or pallor MDM MDM MDM Narrative Medical decision making narrative: Patient arrived to the ER with stable vitals and a soft nonsurgical abdomen. (more content not included)... Normal [facility] Calprotectin, Stoolon [address] 104 ug/g Normal 0-120 [facility] Comment on above: Result Comment: Conc entration Interpretation Follow-Up < 5 - 50 ug/g Normal None >50 -120 ug/g Borderline Re-evaluate in 4-6 weeks >120 ug/g Abnormal Repeat as clinically indicated Performed at: [address] [id number] Paving Supervisor: Ashwin Molina MD, Phone: [phone] Performed By: #### L 7000.0700 #### [facility] [address] [place], [place], [id number] L2100.0000on 07-12-2024 ACCA 11 units Normal 0-90 [facility] Comment on above: Result Comment: Nega tive: <80 Equivocal: 80-90 Positive: >90 Performed By: #### L 501.6710, L101.9900, L2100.0000, L100.0100, L500.4050 ####[facility] [address] [place], [place], [id number] ALCA 11 units Normal 0-60 [facility] Comment on above: Result Comment: Nega tive:<55 Equivocal: 55-60 Positive: >60 Performed By: #### L 501.6710, L101.9900, L2100.0000, L100.0100, L500.4050 ####[facility] [address] [place], [place], [phone](206) AMCA 3 units Normal 0-100 [facility] Comment on above: Result Comment: Nega tive: <90 Equivocal: 90-100 Positive: >100 This test was developed and its performance characteristics determined by [employer]. It has not been cleared or approved by the Food and Drug Administration. The FDA has determined that such clearance or approval is not necessary. Performed By: #### L 501.6710, L101.9900, L2100.0000, L100.0100, L500.4050 ####[facility] [address] [place], [address] Atypical pANCA Negative Normal Negative [facility] Comment on above: Performed By: #### L 501.6710, L101.9900, L2100.0000, L100.0100, L500.4050 ####[facility] [address] [place], [address] COMMENT Comment Normal . [facility] Comment on above: Result Comment: Ericka polina is not suggestive of Inflammatory Bowel Disease Performed at: [address] [id number] Paving Supervisor: Ashwin Molina MD, Phone: [phone] Performed By: #### L 501.6710, L101.9900, L2100.0000, L100.0100, L500.4050 ####[facility] [address] [place], [address] Sharath 19 units Normal 0-50 [facility] Comment on above: Result Comment: Nega tive: <45 Equivocal: 45-50 Positive: >50 Performed By: #### L 501.6710, L101.9900, L2100.0000, L100.0100, L500.4050 ####[facility] [address] [place], [address] CBC W/Diff, Automatedon 04-2 Absolute Lymph 3.17 X10 3/uL Normal 0.83-4.51 [facility] Comment on above: Performed By: #### L 501.6710, L101.9900, L2100.0000, L100.0100, L500.4050 ####[facility] [address] [place], [address] Absolute Neut 6.7 X10 3/uL Normal 2.0-7.7 [facility] Comment on above: Performed By: #### L 501.6710, L101.9900, L2100.0000, L100.0100, L500.4050 ####[facility] [address] [place], [address] Basophils/100 WBC (Bld) 0.4 % Normal 0-1 [facility] Comment on above: Performed By: #### L 501.6710, L101.9900, L2100.0000, L100.0100, L500.4050 ####[facility] [address] [place], [address] Eosinophils/100 WBC (Bld) 1.8 % Normal 0-5 [facility] Comment on above: Performed By: #### L 501.6710, L101.9900, L2100.0000, L100.0100, L500.4050 ####[facility] [address] [place], [address] Erythrocyte distribution width (RBC) [Ratio] 12.0 % Normal 11.6-14.6 [facility] Comment on above: Performed By: #### L 501.6710, L101.9900, L2100.0000, L100.0100, L500.4050 ####[facility] [address] [place], [address] Hematocrit (Bld) [Volume fraction] 35.9 % Low 37-47 [facility] Comment on above: Performed By: #### L 501.6710, L101.9900, L2100.0000, L100.0100, L500.4050 ####[facility] [address] [place], [address] Hemoglobin (Bld) [Mass/Vol] 12.2 g/dL Normal 12.0-15.0 [facility] Comment on above: Performed By: #### L 501.6710, L101.9900, L2100.0000, L100.0100, L500.4050 ####[facility] [address] [place], [address] IG% 0.500 Normal 0.0-0.9 [facility] Comment on above: Result Comment: IG% - Immature Granulocytes (promyelocytes, myelocytes and metamyelocytes) > 1% indicates that a LEFT SHIFT is Present. Performed By: #### L 501.6710, L101.9900, L2100.0000, L100.0100, L500.4050 ####[facility] [address] [place], [address] Lymphocytes/100 WBC (Bld) 28.8 % Normal 19-41 [facility] Comment on above: Performed By: #### L 501.6710, L101.9900, L2100.0000, L100.0100, L500.4050 ####[facility] [address] [place], [address] MCH (RBC) [Entitic mass] 31.6 pg Normal 27.0-32.0 [facility] Comment on above: Performed By: #### L 501.6710, L101.9900, L2100.0000, L100.0100, L500.4050 ####[facility] [address] [place], [address] MCHC (RBC) [Mass/Vol] 34.0 g/dL Normal 32-36 [facility] Comment on above: Performed By: #### L 501.6710, L101.9900, L2100.0000, L100.0100, L500.4050 ####[facility] [address] [place], [address] MCV (RBC) [Entitic vol] 93.0 fL Normal 81-99 [facility] Comment on above: Performed By: #### L 501.6710, L101.9900, L2100.0000, L100.0100, L500.4050 ####[facility] [address] [place], [address] Monocytes/100 WBC (Bld) 7.6 % Normal 0-10 [facility] Comment on above: Performed By: #### L 501.6710, L101.9900, L2100.0000, L100.0100, L500.4050 ####[facility] [address] [place], [address] Neutrophils/100 WBC (Bld) 60.9 % Normal 47-70 [facility] Comment on above: Performed By: #### L 501.6710, L101.9900, L2100.0000, L100.0100, L500.4050 ####[facility] [address] [place], [address] Nucleated RBC (Bld) [#/Vol] 0 10*3/uL Normal 0-5 [facility] Comment on above: Performed By: #### L 501.6710, L101.9900, L2100.0000, L100.0100, L500.4050 ####[facility] [address] [place], [address] Platelet mean volume (Bld) [Entitic vol] 10.9 fL Normal 6.2-12.0 [facility] Comment on above: Performed By: #### L 501.6710, L101.9900, L2100.0000, L100.0100, L500.4050 ####[facility] [address] [place], [address] Platelets (Bld) [#/Vol] 291 10*3/uL Normal 150-450 [facility] Comment on above: Performed By: #### L 501.6710, L101.9900, L2100.0000, L100.0100, L500.4050 ####[facility] [address] [place], [address] RBC (Bld) [#/Vol] 3.86 10*6/uL Low 4.2-5.4 [facility] Comment on above: Performed By: #### L 501.6710, L101.9900, L2100.0000, L100.0100, L500.4050 ####[facility] [address] [place], [address] RDW SD 41.1 fl Normal 35.1-43.9 [facility] Comment on above: Performed By: #### L 501.6710, L101.9900, L2100.0000, L100.0100, L500.4050 ####[facility] [address] [place], [address] WBC (Bld) [#/Vol] 11.0 10*3/uL Normal 4.4-11.0 [facility] Comment on above: Performed By: #### L 501.6710, L101.9900, L2100.0000, L100.0100, L500.4050 ####[facility] [address] [place], [address] CRPon 07-09-2024 C-REACTIVE PROT < 3.00 Normal 0.0-3.0 [facility] Comment on above: Performed By: #### L 501.6710, L101.9900, L2100.0000, L100.0100, L500.4050 ####[facility] [address] [place], [address] Comprehensive Metabolic Prof ilon 07-09-2024 Albumin [Mass/Vol] 4.4 g/dL Normal 3.5-5.0 [facility] Comment on above: Performed By: #### L 501.6710, L101.9900, L2100.0000, L100.0100, L500.4050 ####[facility] [address] [place], [address] Albumin/Globulin [Mass ratio] 1.7 {ratio} Normal 0.9-2.4 [facility] Comment on above: Performed By: #### L 501.6710, L101.9900, L2100.0000, L100.0100, L500.4050 ####[facility] [address] [place], [address] ALK PHOS 35 U/L Normal 35-104 [facility] Comment on above: Performed By: #### L 501.6710, L101.9900, L2100.0000, L100.0100, L500.4050 ####[facility] [address] [place], [address] ALT [Catalytic activity/Vol] 16 U/L Normal <=34 [facility] Comment on above: Performed By: #### L 501.6710, L101.9900, L2100.0000, L100.0100, L500.4050 ####[facility] [address] [place], [address] AST [Catalytic activity/Vol] 20 U/L Normal <=31 [facility] Comment on above: Performed By: #### L 501.6710, L101.9900, L2100.0000, L100.0100, L500.4050 ####[facility] [address] [place], [address] Bilirubin [Mass/Vol] 0.23 mg/dL Normal 0.00-1.30 [facility] Comment on above: Performed By: #### L 501.6710, L101.9900, L2100.0000, L100.0100, L500.4050 ####[facility] [address] [place], [address] BUN/CRE 10.7 RATIO Normal 10-20 [facility] Comment on above: Performed By: #### L 501.6710, L101.9900, L2100.0000, L100.0100, L500.4050 ####[facility] [address] [place], [address] Calcium [Mass/Vol] 9.3 mg/dL Normal 7.6-11.0 [facility] Comment on above: Performed By: #### L 501.6710, L101.9900, L2100.0000, L100.0100, L500.4050 ####[facility] [address] [place], [address] Chloride [Moles/Vol] 107 mmol/L Normal 98-108 [facility] Comment on above: Performed By: #### L 501.6710, L101.9900, L2100.0000, L100.0100, L500.4050 ####[facility] [address] [place], [address] CO2 [Moles/Vol] 20.7 mmol/L Low 21.0-32.0 [facility] Comment on above: Performed By: #### L 501.6710, L101.9900, L2100.0000, L100.0100, L500.4050 ####[facility] [address] [place], [address] Creatinine [Mass/Vol] 0.73 mg/dL Normal 0.70-1.20 [facility] Comment on above: Performed By: #### L 501.6710, L101.9900, L2100.0000, L100.0100, L500.4050 ####[facility] [address] [place], [address] GAP 11 Normal 5-15 [facility] Comment on above: Performed By: #### L 501.6710, L101.9900, L2100.0000, L100.0100, L500.4050 ####[facility] [address] [place], [address] GFR/1.73 sq M.predicted among non-blacks MDRD (S/P/Bld) [Vol rate/Area] 121 mL/min/{1.73_m2} Normal >60 [facility] Comment on above: Result Comment: mL/m in/1.73m2 CKD-EPI Creatinine Equation (2020) Performed By: #### L 501.6710, L101.9900, L2100.0000, L100.0100, L500.4050 ####[facility] [address] [place], [address] Globulin (S) [Mass/Vol] 2.6 g/dL Normal 2.2-4.2 [facility] Comment on above: Performed By: #### L 501.6710, L101.9900, L2100.0000, L100.0100, L500.4050 ####[facility] [address] [place], [address] Glucose [Mass/Vol] 105 mg/dL High 70-99 [facility] Comment on above: Performed By: #### L 501.6710, L101.9900, L2100.0000, L100.0100, L500.4050 ####[facility] [address] [place], [address] Potassium [Moles/Vol] 4.0 mmol/L Normal 3.3-5.1 [facility] Comment on above: Performed By: #### L 501.6710, L101.9900, L2100.0000, L100.0100, L500.4050 ####[facility] [address] [place], [address] Sodium [Moles/Vol] 139 mmol/L Normal 133-145 [facility] Comment on above: Performed By: #### L 501.6710, L101.9900, L2100.0000, L100.0100, L500.4050 ####[facility] [address] [place], [address] T PROT 7.0 g/dL Normal 5.9-8.4 [facility] Comment on above: Performed By: #### L 501.6710, L101.9900, L2100.0000, L100.0100, L500.4050 ####[facility] [address] [place], [address] Urea nitrogen [Mass/Vol] 8 mg/dL Normal 4-19 [facility] Comment on above: Performed By: #### L 501.6710, L101.9900, L2100.0000, L100.0100, L500.4050 ####[facility] [address] [place], [address] Erythrocyte Sed Rateon 07-09 SED RATE 7 mm/hr Normal 0-30 [facility] Comment on above: Performed By: #### L 501.6710, L101.9900, L2100.0000, L100.0100, L500.4050 ####[facility] [address] [place], [address] Gastroenterology Visit Repor ton 07-03-2024 Gastroenterology Visit Report [facility] [address] [place] [address] OFFICE VISIT Date of Service: 07/03/24 MR#: [id number] Acct: [id number] Name: MARIANGEL SAEED Rep #: [id number] : 2005 Provider: ANDREY Sanchez Age/Sex: 18/F Location: [facility] [place] Status: Signed Intake Vital Signs 04/17/24 16:14 [...] found only the Lomotil to be helpful. [facility] Medical History Acute otitis externa of right ear SANDRO (generalized anxiety disorder) Hematuria Dysuria Asthma Fatigue Migraines Family History Father CVA (cerebral vascular accident) Mother Diabetes Hypertension Anemia Social History Smoking Status: Current every day smoker tobacco type: e-cigarettes alcohol intake: never HPI HPI Chief Complaint: diarrhea Details: MARIANGEL SAEED, is a 18 F who presents to the office today for establishment with [facility]. Pt has struggled with alternating bowels [...] Appearance: average body habitus and well nourished [facility] Head: normal to inspection Ears: hearing grossly [...] hepatosplenomegaly S (more content not included)... Normal [facility] Bacteria Ur Culton 5 Bacteria identified Cx Nom (U) ORGANISM ID: 1 10,000 -<50,000 CFU/ml Normal urogenital marquita Normal [facility] Comment on above: Performed By: #### 6 30-4 #### [facility] CLIA [id number] [address] [place] [address] [place] CNOVon 05-24-2024 CNOV Office Visit (UCWSTR ) MARIANGEL SAEED ([id number]) 1 F Date Time Provider Department 05/24/24 2:30 PM TANISHA BAUMAN [facility] During your visit today, we recorded the following information about you: Temperature Pulse Respiration Blood pressure 99.1 degrees 106/minute 18/minute 138/91 Weight Last Period 48.4 kg 04/17/24 Tanisha Bauman APRN.CERTIFIED ORTHOTIST PRACTICE MANAGER 05/24/2024 3:07 PM Signed [facility] Subjective Mariangel Saeed is a 18 year old [...] history is provided by the patient. No language tutor was used. UTI Associated symptoms include frequency. [...] likely caused by her hemorrhoid. Tanisha Bauman APRN.CERTIFIED ORTHOTIST PRACTICE MANAGER MDM Procedures Allergies As of Date: 05/24/2024 (No Known Allergies) Date Reviewed: 05/24/2024 Reviewed by: Mayela Ornelas MA - Fully Assessed Reason for Visit: UTI [116] Cmt: Frequency, painful urination, upset stomach x last night Primary Visit Diagnosis:Urinary frequency [R35.0] Order(s):UA DIP, URINE (POC) [7343458] Order #: [id number]. #:[id number] BACTERIAL CULTURE, URINE [SQURCUL] Order #: [id number]. #:[id number] Prescriptions as of 05/24/2024 - buPROPion XL [...] (ANA CRISTINA (more content not included)... Normal [facility] UA DIP, URINE (POC)on 2024 BILIRUBIN UA (POCT) Negative Negative [facility] CLARITY UA (POCT) Clear [facility] COLOR UA (POCT) Yellow [facility] GLUCOSE UA (POCT) Negative Negative mg/dL [facility] Hemoglobin Ql (U) Large Abnormal Negative [facility] Interpretation and review of laboratory results Abnormal [facility] KETONE UA (POCT) 40 mg/dL Abnormal Negative [facility] LEUKOCYTES UA (POCT) Negative Negative [facility] NITRITE UA (POCT) Negative Negative [facility] PH UA (POCT) 6 4.5 - 8.0 [facility] Protein Ql (U) Negative Negative mg/dL [facility] SPECIFIC GRAVITY UA (POCT) 1.01 1.005 - 1.030 [facility] UROBILINOGEN UA (POCT) 0.2 Normal E.U./dL [facility] Location:[address], [place], [place], [id number] [place] [address] POINT OF CARE [facility] MR/BMS.BPon 04-17-2024 MR/BMS.BP [facility] [address] [facility], [address] [place] [id number] OFFICE VISIT Date of Service: 04/17/24 MR#: [id number] Acct: [id number] Name: MARIANGEL SAEED Rep #: [id number] : 2005 Provider: Dr. Momo Lanier se, DO Age/Sex: 18/F Location: [facility] Status: Signed Intake Vital Signs 11/07/23 15:56 [...] Cheema Signature: Date (if applicable) CC: Normal [facility] Vitamin D 1,25-Dihydroxyon 1 04-28-2023 VIT D 1,25 DIHY 48.7 pg/mL Normal 24.8-81.5 [facility] Comment on above: Order Comment: Order Date: 02/15/24Order Info: [id number] - [id number] Result Comment: Perf ormed at: BN - [facility] [address] [id number] Paving Supervisor: Ashwin Molina MD, Phone: [phone] Performed By: #### L 344.9183, Z341.3905, Y559.8073, T3888.8163, A4616.8053 ####[facility] [address] [place], [address] Celiac AB,Comprehensiveon ANTIGLIADIN IGA 2 units Normal 0-19 [facility] Comment on above: Order Comment: Order Date: 02/15/24Order Info: 075-1 - CELAB Result Comment: Nega tive 0 - 19 Weak Positive 20 - 30 Moderate to Strong Positive >30 Performed By: #### L 101.9900, L500.4050, L503.0105, L3410.2350, L3300.0960 ####[facility] [address] [place], [address] ANTIGLIADIN IGG 2 units Normal 0-19 [facility] Comment on above: Order Comment: Order Date: 02/15/24Order Info: 075- - CELAB Result Comment: Nega tive 0 - 19 Weak Positive 20 - 30 Moderate to Strong Positive >30 Performed By: #### L 101.9900, L500.4050, L503.0105, L3410.2350, L3300.0960 ####[facility] [address] [place], [place], [id number] ENDOMYSIAL IGA Negative Normal Negative [facility] Comment on above: Order Comment: Order Date: 02/15/24Order Info: 075- - CELAB Performed By: #### L 101.9900, L500.4050, L503.0105, L3410.2350, L3300.0960 ####[facility] [address] [place], [place], [id number] IMMUNOGLOB A QN 154 mg/dL Normal 87-352 [facility] Comment on above: Order Comment: Order Date: 02/15/24Order Info: 075- - CELAB Result Comment: Perf ormed at: - [facility] [address] [id number] Paving Supervisor: Ramesh Barba PhD, Phone: [phone] Performed By: #### L 101.9900, L500.4050, L503.0105, L3410.2350, L3300.0960 ####[facility] [address] [place], [place], [address] tTG IGA <2 Normal 0-3 [facility] Comment on above: Order Comment: Order Date: 02/15/24Order Info: 0751-1 - CELAB Result Comment: Nega tive 0 - 3 Weak Positive 4 - 10 Positive >10 Tissue Transglutaminase (tTG) has been identified as the endomysial antigen. Studies have demonstr- ated that endomysial IgA antibodies have over 99% specificity for gluten sensitive enteropathy. Performed By: #### L 101.9900, L500.4050, L503.0105, L3410.2350, L3300.0960 ####[facility] [address] [place], [place], [id number] tTG IGG <2 Normal 0-5 [facility] Comment on above: Order Comment: Order Date: 02/15/24Order Info: 0751-1 - CELAB Result Comment: Nega tive 0 - 5 Weak Positive 6 - 9 Positive >9 Performed By: #### L 101.9900, L500.4050, L503.0105, L3410.2350, L3300.0960 ####[facility] [address] [facility] [place], [place], [id number] Comprehensive Metabolic Prof ilon 02-19-2024 Albumin [Mass/Vol] 4.4 g/dL Normal 3.2-5.0 [facility] Comment on above: Order Comment: Order Date: 02/15/24 Order Info: 0786-1 - CMP Performed By: #### L 101.9900, L500.4050, L503.0105, L3410.2350, L3300.0960 #### [facility] [address] [place], [place], [address] Albumin/Globulin [Mass ratio] 1.5 {ratio} Normal 0.9-2.4 [facility] Comment on above: Order Comment: Order Date: 02/15/24 Order Info: 0786-1 - CMP Performed By: #### L 101.9900, L500.4050, L503.0105, L3410.2350, L3300.0960 #### [facility] [address] [place], [address] ALK P 39 U/L Low 45-117 [facility] Comment on above: Order Comment: Order Date: 02/15/24 Order Info: 0786-1 - CMP Performed By: #### L 101.9900, L500.4050, L503.0105, L3410.2350, L3300.0960 #### [facility] [address] [place], [address] ALT [Catalytic activity/Vol] 49 U/L Normal 13-56 [facility] Comment on above: Order Comment: Order Date: 02/15/24 Order Info: 0786-1 - CMP Performed By: #### L 101.9900, L500.4050, L503.0105, L3410.2350, L3300.0960 #### [facility] [address] [place], [address] AST [Catalytic activity/Vol] 20 U/L Normal 15-37 [facility] Comment on above: Order Comment: Order Date: 02/15/24 Order Info: 0786-1 - CMP Performed By: #### L 101.9900, L500.4050, L503.0105, L3410.2350, L3300.0960 #### [facility] [address] [place], [address] Bilirubin [Mass/Vol] 0.40 mg/dL Normal 0.20-1.00 [facility] Comment on above: Order Comment: Order Date: 02/15/24 Order Info: 0786-1 - CMP Result Comment: For patients on eltrombopag therapy, use of Dimension [place] TBIL is not recommended. Performed By: #### L 101.9900, L500.4050, L503.0105, L3410.2350, L3300.0960 #### [facility] [address] [place], [address] BUN/CRE 12.5 RATIO Normal 10-20 [facility] Comment on above: Order Comment: Order Date: 02/15/24 Order Info: 0786-1 - CMP Performed By: #### L 101.9900, L500.4050, L503.0105, L3410.2350, L3300.0960 #### [facility] [address] [place], [address] CA,Total 9.6 mg/dL Normal 8.5-10.1 [facility] Comment on above: Order Comment: Order Date: 02/15/24 Order Info: 0786-1 - CMP Performed By: #### L 101.9900, L500.4050, L503.0105, L3410.2350, L3300.0960 #### [facility] [address] [place], [address] Chloride [Moles/Vol] 109 mmol/L High 98-107 [facility] Comment on above: Order Comment: Order Date: 02/15/24 Order Info: 0786-1 - CMP Performed By: #### L 101.9900, L500.4050, L503.0105, L3410.2350, L3300.0960 #### [facility] [address] [place], [address] CO2 [Moles/Vol] 24.0 mmol/L Normal 21.0-32.0 [facility] Comment on above: Order Comment: Order Date: 02/15/24 Order Info: 0786-1 - CMP Performed By: #### L 101.9900, L500.4050, L503.0105, L3410.2350, L3300.0960 #### [facility] [address] [place], [address] Creatinine [Mass/Vol] 0.80 mg/dL Normal 0.55-1.02 [facility] Comment on above: Order Comment: Order Date: 02/15/24 Order Info: 0786-1 - CMP Result Comment: The validity of the calculated GFR GFRAA in patients over 70 years has not been determined. Clinical correlation is essential. Performed By: #### L 101.9900, L500.4050, L503.0105, L3410.2350, L3300.0960 #### [facility] [address] [place], [address] EST GFR - AA 117 mL/min Normal >60 [facility] Comment on above: Order Comment: Order Date: 02/15/24 Order Info: 0786-1 - CMP Result Comment: Afri can Tristanian GFR Calc Performed By: #### L 101.9900, L500.4050, L503.0105, L3410.2350, L3300.0960 #### [facility] [address] [place], [address] GAP 6 Normal 5-15 [facility] Comment on above: Order Comment: Order Date: 02/15/24 Order Info: 0786-1 - CMP Performed By: #### L 101.9900, L500.4050, L503.0105, L3410.2350, L3300.0960 #### [facility] [address] [place], [address] GFR/1.73 sq M.predicted among non-blacks MDRD (S/P/Bld) [Vol rate/Area] 97 mL/min/{1.73_m2} Normal >60 [facility] Comment on above: Order Comment: Order Date: 02/15/24 Order Info: 0786-1 - CMP Result Comment: Non- GFR Calc Performed By: #### L 101.9900, L500.4050, L503.0105, L3410.2350, L3300.0960 #### [facility] [address] [place], [address] Globulin (S) [Mass/Vol] 3.0 g/dL Normal 2.2-4.2 [facility] Comment on above: Order Comment: Order Date: 02/15/24 Order Info: 0786-1 - CMP Performed By: #### L 101.9900, L500.4050, L503.0105, L3410.2350, L3300.0960 #### [facility] [address] [place], [address] Glucose [Mass/Vol] 97 mg/dL Normal 74-106 [facility] Comment on above: Order Comment: Order Date: 02/15/24 Order Info: 0786-1 - CMP Performed By: #### L 101.9900, L500.4050, L503.0105, L3410.2350, L3300.0960 #### [facility] [address] [place], [address] Potassium [Moles/Vol] 4.0 mmol/L Normal 3.5-5.1 [facility] Comment on above: Order Comment: Order Date: 02/15/24 Order Info: 0786-1 - CMP Performed By: #### L 101.9900, L500.4050, L503.0105, L3410.2350, L3300.0960 #### [facility] [address] [place], [address] Sodium [Moles/Vol] 139 mmol/L Normal 136-145 [facility] Comment on above: Order Comment: Order Date: 02/15/24 Order Info: 0786-1 - CMP Performed By: #### L 101.9900, L500.4050, L503.0105, L3410.2350, L3300.0960 #### [facility] [address] [place], [address] T PROT 7.4 g/dL Normal 6.4-8.2 [facility] Comment on above: Order Comment: Order Date: 02/15/24 Order Info: 0786-1 - CMP Performed By: #### L 101.9900, L500.4050, L503.0105, L3410.2350, L3300.0960 #### [facility] [address] [place], [address] Urea nitrogen [Mass/Vol] 10 mg/dL Normal 7-18 [facility] Comment on above: Order Comment: Order Date: 02/15/24 Order Info: 0786-1 - CMP Performed By: #### L 101.9900, L500.4050, L503.0105, L3410.2350, L3300.0960 #### [facility] [address] [place], [address] Erythrocyte Sed Rateon 02-18 SED RATE 8 mm/hr Normal 0-30 [facility] Comment on above: Order Comment: Order Date: 02/15/24 Order Info: [id number] - SED Performed By: #### L 101.9900, L500.4050, L503.0105, L3410.2350, L3300.0960 #### [facility] [address] [place], [address] Vitamin B12on 02-19-2024 Cobalamin (Vitamin B12) [Mass/Vol] 1819 pg/mL High 211-911 [facility] Comment on above: Order Comment: Order Date: 02/15/24 Order Info: [id number] - B12 Performed By: #### L 101.9900, L500.4050, L503.0105, L3410.2350, L3300.0960 #### [facility] [address] [place], [address] Absolute lymphocyte countOrd ered By: Dr. Black on 08-22-2022 Lymphocytes Auto (Unsp spec) [#/Vol] 3.63 10*3/uL 0.83-4.51 [facility] Basophil percentageOrdered B y: Dr. Black on 08-22-2022 Basophils/100 WBC (Bld) 0.4 % 0-1 [facility] Eosinophils/100 WBC (Bld) 1.2 % 0-5 [facility] Neutrophils (Bld) [#/Vol] 8.1 10*3/uL 2.0-7.7 [facility] Neutrophils/100 WBC (Bld) 62.9 % 47-70 [facility] WBC (Bld) [#/Vol] 12.9 10*3/uL 4.4-11.0 [facility] Blood erythrocytes count (nu mber/volume)Ordered By: Dr. Black on 08-22-2022 RBC (Bld) [#/Vol] 4.54 10*6/uL 4.2-5.4 [facility] Blood hemoglobin measurement (mass/volume)Ordered By: Dr. Black on 08-22-2022 Hemoglobin (Bld) [Mass/Vol] 13.7 g/dL 12.0-15.0 [facility] Blood lymphocytes/100 leukoc ytesOrdered By: Dr. Black on 08-22-2022 Lymphocytes/100 WBC (Bld) 28.2 % 19-41 [facility] Blood monocytes/100 leukocyt esOrdered By: Dr. Black on 08-22-2022 Monocytes/100 WBC (Bld) 6.9 % 0-10 [facility] Blood platelet mean volumeOr dered By: Dr. Black on 08-22-2022 Platelet mean volume (Bld) [Entitic vol] 11.4 fL 6.2-12.0 [facility] Determination of erythrocyte mean corpuscular volume (MCV)Ordered By: Dr. Black on 08-22-2022 MCV (RBC) [Entitic vol] 91.0 fL 81-99 [facility] Hematocrit Auto (Bld) [Volum e fraction]Ordered By: Dr. Black on 08-22-2022 Hematocrit (Bld) [Volume fraction] 41.3 % 37-47 [facility] Laboratory - Hematology and Cell countsOrdered By: Dr. Black on 08-22-2022 Erythrocyte distribution width (RBC) [Entitic vol] 40.6 fL 35.1-43.9 [facility] Erythrocyte distribution width (RBC) [Ratio] 12.2 % 11.6-14.6 [facility] Immature granulocytes/100 WBC (Bld) 0.400 % 0.0-0.9 [facility] Comment on above: IG% - Immature Granu locytes (promyelocytes, myelocytes and metamyelocytes) > 1% indicates that a LEFT SHIFT is Present. MCH (RBC) [Entitic mass] 30.2 pg 27.0-32.0 [facility] Nucleated RBC/100 WBC (Bld) [Ratio] 0 % 0-5 [facility] MCHC Auto (RBC) [Mass/Vol]Or dered By: Dr. Black on 08-22-2022 MCHC (RBC) [Mass/Vol] 33.2 g/dL 32-36 [facility] Platelets bldOrdered By: Dr. Black on 08-22-2022 Platelets (Bld) [#/Vol] 376 10*3/uL 150-450 [facility] Absolute lymphocyte countOrd ered By: Dr. Black on 07-14-2022 Lymphocytes Auto (Unsp spec) [#/Vol] 3.01 10*3/uL 0.83-4.51 [facility] Basophil percentageOrdered B y: Dr. Black on 07-14-2022 Basophil percentage Not Reportable [facility] Basophils/100 WBC (Bld) 0.4 % 0-1 [facility] Bilirubin [Mass/Vol] 0.20 mg/dL 0.20-1.00 [facility] Comment on above: For patients on eltr ombopag therapy, use of Dimension [place] TBIL is not recommended. Chloride [Moles/Vol] 107 mmol/L 98-107 [facility] Eosinophils/100 WBC (Bld) 2.0 % 0-3 [facility] Glucose [Mass/Vol] 83 mg/dL 74-106 [facility] Neutrophils (Bld) [#/Vol] 9.3 10*3/uL 2.0-7.7 [facility] Neutrophils/100 WBC (Bld) 68.1 % 34-64 [facility] Potassium [Moles/Vol] 4.2 mmol/L 3.5-5.1 [facility] Protein [Mass/Vol] 7.6 g/dL 6.4-8.2 [facility] Sodium [Moles/Vol] 140 mmol/L 136-145 [facility] WBC (Bld) [#/Vol] 13.7 10*3/uL 4.5-13.0 [facility] Blood erythrocytes count (nu mber/volume)Ordered By: Dr. Black on 07-14-2022 RBC (Bld) [#/Vol] 4.40 10*6/uL 4.1-4.8 [facility] Blood hemoglobin measurement (mass/volume)Ordered By: Dr. Black on 07-14-2022 Hemoglobin (Bld) [Mass/Vol] 13.0 g/dL 12.0-15.0 [facility] Blood lymphocytes/100 leukoc ytesOrdered By: Dr. Black on 07-14-2022 Lymphocytes/100 WBC (Bld) 21.9 % 25-45 [facility] Blood monocytes/100 leukocyt esOrdered By: Dr. Black on 07-14-2022 Monocytes/100 WBC (Bld) 7.1 % 3-6 [facility] Blood platelet mean volumeOr dered By: Dr. Black on 07-14-2022 Platelet mean volume (Bld) [Entitic vol] 11.0 fL 6.2-12.0 [facility] Determination of erythrocyte mean corpuscular volume (MCV)Ordered By: Dr. Black on 07-14-2022 MCV (RBC) [Entitic vol] 90.5 fL 78-96 [facility] Erythrocyte sedimentation ra teOrdered By: Dr. Black on 07-14-2022 ESR (Bld) [Velocity] 11 mm/h 0-30 [facility] Hematocrit Auto (Bld) [Volum e fraction]Ordered By: Dr. Black on 07-14-2022 Hematocrit (Bld) [Volume fraction] 39.8 % 37-46 [facility] Laboratory - Chemistry and C hemistry - challengeOrdered By: Dr. Black on 07-14-2022 ALP [Catalytic activity/Vol] 54 U/L 47-119 [facility] ALT [Catalytic activity/Vol] 19 U/L 13-56 [facility] CO2 [Moles/Vol] 25.0 mmol/L 21.0-32.0 [facility] Free T4 [Mass/Vol] 0.94 ng/dL 0.76-1.46 [facility] Globulin (S) [Mass/Vol] 3.5 g/dL 2.2-4.2 [facility] Urea nitrogen/Creatinine [Mass ratio] 15.4 mg/mg 10-20 [facility] Laboratory - Hematology and Cell countsOrdered By: Dr. Black on 07-14-2022 Erythrocyte distribution width (RBC) [Entitic vol] 39.6 fL 35.1-43.9 [facility] Erythrocyte distribution width (RBC) [Ratio] 11.9 % 11.6-14.6 [facility] Immature granulocytes/100 WBC (Bld) 0.500 % 0.0-0.9 [facility] Comment on above: IG% - Immature Granu locytes (promyelocytes, myelocytes and metamyelocytes) > 1% indicates that a LEFT SHIFT is Present. MCH (RBC) [Entitic mass] 29.5 pg 25.0-35.0 [facility] Nucleated RBC/100 WBC (Bld) [Ratio] 0 % 0-5 [facility] MCHC Auto (RBC) [Mass/Vol]Or dered By: Dr. Black on 07-14-2022 MCHC (RBC) [Mass/Vol] 32.7 g/dL 32-36 [facility] No Panel InformationOrdered By: Dr. Black on 07-14-2022 Anti-Nuclear Antibody Screen Negative Negative [facility] Comment on above: Performed at: [facility] [address] [id number] Director: Ramesh Barba PhD, Phone: [phone] [employer] [facility] Antibody Not Reportable [facility] Estimated GFR (MDRD) Amer 123 mL/min >60 [facility] Comment on above: GFR Calc Estimated GFR (MDRD) Non-Af Amer 101 mL/min >60 [facility] Comment on above: Non- GFR Calc Free Triiodothyronine (T3) pg/dL 2.5 pg/mL 2.18-3.98 [facility] EXPORT AGENT Antibody Not Reportable [facility] Thyroglobulin Antibody < 1.0 IU/mL 0.0-0.9 [facility] Comment on above: Thyroglobulin Antibo dy measured by [employer] MediaMethodologyPerformed at: [facility] [address] [id number] Director: Ramesh Barba PhD, Phone: [phone] Thyroid Stimulating Hormone (TSH) 1.45 uIU/mL 0.358-3.74 [facility] Platelets bldOrdered By: Dr. Black on 07-14-2022 Platelets (Bld) [#/Vol] 328 10*3/uL 150-450 [facility] Serum DNA double strand anti body assay (units/volume)Ordered By: Dr. Black on 07-14-2022 DNA double strand Ab Qn (S) Not Reportable [facility] Serum Aline-1 antibody assay (u nits/volume)Ordered By: Dr. Black on 07-14-2022 Aline-1 extractable nuclear Ab Qn (S) Not Reportable [facility] Serum Scl-70 extractable nuc lear antibody assay (units/volume)Ordered By: Dr. Black on 07-14-2022 SCL-70 extractable nuclear Ab Qn (S) Not Reportable [facility] Serum Calhoun extractable nucl ear antibody detectionOrdered By: Dr. Black on 07-14-2022 Calhoun extractable nuclear Ab Ql (S) Not Reportable [facility] Serum or plasma C reactive p rotein measurement (mass/volume)Ordered By: Dr. Black on 07-14-2022 CRP [Mass/Vol] 5.80 mg/L 0.0-3.0 [facility] Comment on above: C-Reactive Protein ( CRP) provides useful information for thediagnosis, therapy and monitoring of inflammatory processesand associated diseases. For the evaluation of Relative Riskfor Cardiovascular Disease, a High Sensitivity CRP (HSCRP)should be ordered. Serum or plasma albumin jerman urement (mass/volume)Ordered By: Dr. Black on 07-14-2022 Albumin [Mass/Vol] 4.1 g/dL 3.2-5.0 [facility] Serum or plasma albumin/glob ulin mass ratioOrdered By: Dr. Black on 07-14-2022 Albumin/Globulin [Mass ratio] 1.2 {ratio} 0.9-2.4 [facility] Serum or plasma calcium jerman urement (mass/volume)Ordered By: Dr. Black on 07-14-2022 Calcium [Mass/Vol] 9.8 mg/dL 8.5-10.1 [facility] Serum or plasma creatinine m easurement (mass/volume)Ordered By: Dr. Black on 07-14-2022 Creatinine [Mass/Vol] 0.78 mg/dL 0.55-1.02 [facility] Comment on above: The validity of the calculated GFR & GFRAA in patients over 70 years has not been determined. Clinical correlation is essential. Serum or plasma thyroperoxid ase antibody assay (units/volume)Ordered By: Dr. Black on 07-14-2022 TPO Ab Qn [IU]/mL 0-26 [facility] Serum or plasma urea nitroge n measurement (mass/volume)Ordered By: Dr. Black on 07-14-2022 Urea nitrogen [Mass/Vol] 12 mg/dL 7-18 [facility] Thin prep Papanicolaou smear with manual screeningOrdered By: Dr. Black on 07-14-2022 Thin prep Papanicolaou smear with manual screening 15 U/L 15-37 [facility] Thin prep Papanicolaou smear with manual screening 8 5-15 [facility] Progress Noteon 04-20-2020 [employer] Authentication Interface Message Text Patient ID: Mariangel [...] With Score - Health Risk Assessment - CRAFFT Exercise counseling Encounter for dietary counseling and surveillance call for any questions/concerns/problems/c hanges All questions answered Return in about 1 year (around 04/20/2021) for well check. Continue counselingMariangel Saeed is a 14 y.o. female patient. PHQ9 [...] high (like other illegal drugs, prescription or bzxd-ooo-matiyyw medications, and things that you sniff, tenorio, [...] air entry. Neurological: She is alert. Normal [facility] Vital Signs Date Time Vital Sign Value Performing Clinician Lindsey brown 05-24-2024 14:25-0400 Body temperature 99.1 [degF] Tanisha Bauman APRN.CERTIFIED ORTHOTIST PRACTICE MANAGER Work Phone: [facility] 05-24-2024 14:25-0400 Body weight 48.4 kg Tanisha Bauman APRN.CERTIFIED ORTHOTIST PRACTICE MANAGER Work Phone: [facility] 05-24-2024 14:25-0400 Diastolic blood pressure 91 mm[Hg] Tanisha Bauman APRN.CERTIFIED ORTHOTIST PRACTICE MANAGER Work Phone: [facility] 05-24-2024 14:25-0400 Heart rate 106 /min Tanisha Bauman APRN.CERTIFIED ORTHOTIST PRACTICE MANAGER Work Phone: [facility] 05-24-2024 14:25-0400 Respiratory rate 18 /min Tanisha Bauman APRN.CERTIFIED ORTHOTIST PRACTICE MANAGER Work Phone: [facility] 05-24-2024 14:25-0400 SaO2% (BldA) [Mass fraction] 98 % Tanisha Bauman APRN.CERTIFIED ORTHOTIST PRACTICE MANAGER Work Phone: [facility] 05-24-2024 14:25-0400 Systolic blood pressure 138 mm[Hg] Tanisha Bauman APRN.CERTIFIED ORTHOTIST PRACTICE MANAGER Work Phone: [facility] Encounters Encounter Date Encounter Type Care Provider Facility Start: 11-27-2024 ambulatory Chalon Madyson Facility:[facility] Start: 11-26-2024 End: 11-26-2024 ambulatory Momo L Seese Facility:[facility] Start: 10-30-2024 ambulatory Chalon Madyson Facility:[facility] Start: 10-28-2024 ambulatory Momo L Seese Facility :[facility] Start: 10-25-2024 End: 10-25-2024 ambulatory Chalon Madyson Facility:[facility] Start: 10-22-2024 End: 10-22-2024 ambulatory Ciara Weiss Facility:[facility] Start: 09-10-2024 End: 09-10-2024 Emergency department patient visit [facility]on [facility] Facility:[facility] Start: 07-09-2024 End: 07-09-2024 ambulatory Chalon [facility] Facility:[facility] Start: 07-03-2024 End: 07-03-2024 ambulatory Chalon Madyson Facility:[facility] Start: 05-31-2024 ambulatory Shawna Kevin Facility :[facility] Start: 05-26-2024 End: 07-26-2024 Follow-up encounter Guillermo BALDERAS Work Phone: [facility] Start: 05-24-2024 End: 05-24-2024 ambulatory CHALON MADYSON Facility:[facility] Start: 05-24-2024 End: 05-24-2024 Patient encounter procedure Tanisha Bauman APRN.CERTIFIED ORTHOTIST PRACTICE MANAGER Work Phone: [facility] Comment on above: Urinary frequency (P rimary Dx) Start: 05-07-2024 ambulatory Nilda Augie Facilit y:[facility] Start: 04-17-2024 End: 04-17-2024 ambulatory Momo L Seese Facility:[facility] Start: 02-19-2024 End: 02-19-2024 ambulatory Chalon Madyson Facility:[facility] Start: 08-22-2022 End: 08-22-2022 ambulatory [facility] Work Phone: Start: 08-22-2022 End: 08-22-2022 Patient encounter procedure [facility], Yousuf Urrutia [facility] Start: 07-14-2022 End: 07-14-2022 ambulatory [facility] Work Phone: Start: 07-14-2022 End: 07-14-2022 Patient encounter procedure [facility], Yousuf Urrutia [facility] Start: 07-06-2022 Registered Rec[facility] Therapy Procedures Date Procedure Procedure Detail Performing Clinician Start: 05-24-2024 Urnls dip stick/tabl et rgnt auto w/o microscopy Tanisha Bauman APRN.CERTIFIED ORTHOTIST PRACTICE MANAGER Work Phone: Plan of Treatment Date Care Activity Detail Author Start: 11-11-2024 Influenza vaccination Influenz a Vaccine (Season Ended) [facility] Start: 11-12-2023 Covid-19 Vaccine ( season) Covid-19 Vaccine ( season) [facility] Start: 11-12-2023 Influenza vaccination Influenza Vacc ine (#1) [facility] Start: 07-24-2021 Anxiety Screening Anxiety Screening [facility] Start: 07-24-2021 Depression Screening Depression Scre ening [facility] Start: 07-24-2021 GC (Gonorrhea) Scree jasbir (18-24) GC (Gonorrhea) Screening (18-24) [facility] Start: 07-24-2021 Hepatitis C screening Hepatitis C Sc reening [facility] Start: 07-24-2021 HIV screening [facility] Screening [facility] Start: 07-24-2021 Screening for Chlamy abdon trachomatis Chlamydia Screening () [facility] Start: 2019 Meningococcal B Vacc ine (1 of 2 - Standard) Meningococcal B Vaccine (1 of 2 - Standard) [facility] Start: 07-24-2018 HPV Vaccine (1 - 3-d ose series) HPV Vaccine (1 - 3-dose series) [facility] Start: 07-24-2017 Peds To Adult Transi tion Annual Assessment Peds To Adult Transition Annual Assessment [facility] Start: 2015 Peds To Adult Transi tion Initial Discussion Peds To Adult Transition Initial Discussion [facility] Start: 07-24-2014 Urine microalbumin profile DTaP,Tdap,Td Vaccine (5 - Tdap) [facility] Bacteria identified in Urine by Culture BACTERIAL CULTURE, URINE Microbiology Routine Urinary frequency Ordered: 05/24/2024 [facility] Work Phone: Comment on above: Ordered: 05/24/2024 Immunizations Immunization Date Immunization Notes Care Provider Yfn goddard 09-08-2015 meningococcal polysaccharide (groups A, C, Y and W-135) diphtheria toxoid conjugate vaccine (MCV4P) Tanisha Bauman APRN.CERTIFIED ORTHOTIST PRACTICE MANAGER Work Phone: [facility] 01-14-2011 influenza, seasonal, injectable, preservative free Tanisha Bauman APRN.CERTIFIED ORTHOTIST PRACTICE MANAGER Work Phone: [facility] 01-14-2011 tetanus toxoid, redu lachelle diphtheria toxoid, and acellular pertussis vaccine, adsorbed Tanisha Bauman APRN.CERTIFIED ORTHOTIST PRACTICE MANAGER Work Phone: [facility] 01-14-2011 varicella virus vaccine Missy Bauman APRN.CERTIFIED ORTHOTIST PRACTICE MANAGER Work Phone: [facility] 01-14-2011 influenza virus vacc ine, unspecified formulation Tanisha Bauman APRN.CERTIFIED ORTHOTIST PRACTICE MANAGER Work Phone: [facility] 07-10-2009 haemophilus influenz ae type b vaccine, PRP-T conjugate Tanisha Bauman APRN.CERTIFIED ORTHOTIST PRACTICE MANAGER Work Phone: [facility] 06-17-2009 diphtheria, tetanus toxoids and acellular pertussis vaccine Tanisha Bauman APRN.CERTIFIED ORTHOTIST PRACTICE MANAGER Work Phone: [facility] 06-17-2009 DTaP-hepatitis B and poliovirus vaccine Tanisha Bauman APRN.CERTIFIED ORTHOTIST PRACTICE MANAGER Work Phone: [facility] 01-09-2009 haemophilus influenz ae type b vaccine, PRP-T conjugate Tanisha Bauman APRN.CERTIFIED ORTHOTIST PRACTICE MANAGER Work Phone: [facility] 01-09-2009 influenza virus vacc ine, whole virus Tanisha Bauman APRN.CERTIFIED ORTHOTIST PRACTICE MANAGER Work Phone: [facility] 12-10-2008 diphtheria, tetanus toxoids and acellular pertussis vaccine Tanisha Bauman APRN.CERTIFIED ORTHOTIST PRACTICE MANAGER Work Phone: [facility] 12-10-2008 DTaP-hepatitis B and poliovirus vaccine Tanisha Bauman APRN.CERTIFIED ORTHOTIST PRACTICE MANAGER Work Phone: [facility] 11-07-2008 haemophilus influenz ae type b vaccine, PRP-T conjugate Tanisha Bauman APRN.CERTIFIED ORTHOTIST PRACTICE MANAGER Work Phone: [facility] 10-10-2008 diphtheria, tetanus toxoids and acellular pertussis vaccine Tanisha Bauman [employer]ESS [employer].CERTIFIED ORTHOTIST PRACTICE MANAGER Work Phone: [facility] 10-10-2008 DTaP-hepatitis B and poliovirus vaccine Tanisha Bauman APRN.CERTIFIED ORTHOTIST PRACTICE MANAGER Work Phone: [facility] 09-09-2008 haemophilus influenz ae type b vaccine, PRP-T conjugate Tanisha Bauman APRN.CERTIFIED ORTHOTIST PRACTICE MANAGER Work Phone: [facility] 08-13-2008 diphtheria, tetanus toxoids and acellular pertussis vaccine Tanisha James [employer].CERTIFIED ORTHOTIST PRACTICE MANAGER Work Phone: [facility] 08-13-2008 DTaP-hepatitis B and poliovirus vaccine Tanisha Bauman [employer].CERTIFIED ORTHOTIST PRACTICE MANAGER Work Phone: [facility] 08-13-2008 haemophilus influenz ae type b vaccine, PRP-T conjugate Tanisha Bauman APRN.CERTIFIED ORTHOTIST PRACTICE MANAGER Work Phone: [facility] 08-13-2008 varicella virus vaccine Missy Bauman [employer]ARD/[employer] CLASS.CERTIFIED ORTHOTIST PRACTICE MANAGER Work Phone: [facility] 02-14-2008 influenza, seasonal, injectable, preservative free Tanisha Bauman [employer]ARD/[employer].CERTIFIED ORTHOTIST PRACTICE MANAGER Work Phone: [facility] 01-11-2008 influenza, seasonal, injectable, preservative free Tanisha James [employer]EWARD/[employer]ARDESS [employer].[facility] Work Phone: [facility] Payers Date Payer Category Payer Self-pay [id number] 2023 Private Health Insurance [facility] UMR CHOICE PLUS [id number] 2023 Unknown [id number] Private Health Insurance [employer] [id number] Unknown ANTHEM [id number] Unknown [employer] [place] DICAL TA [id number] Unknown [employer] [id number] Unknown [id number] Unknown [id number]. 462 Unknown [id number]. 462 Unknown [id number]. 462 Unknown [id number]. 462 Unknown [id number]. 462 Unknown [id number]. 462 Unknown [id number]. 462 Unknown [id number]. 462 Unknown [id number]. 462 Unknown [id number]. 462 Unknown [id number]. 462 Unknown [id number]. 462 Social History Date Type Detail Facility Start: 01-31-[facility]22 [facility] Start: 2005 Sex Assigned At Female [facility] Start: 03-08-2023 Tobacco smoking stat [facility] Never smoked tobacco [facility] Start: 03-08-2023 Tobacco use and exposure Smokeless tobacco non-user [facility] Start: 05-24-2024 Alcoholic beverage intake Not Asked [facility] Start: 02-19-2020 End: 05-24-2024 History of Social function [facility] Start: 02-19-2020 End: 05-24-2024 Tobacco use panel [facility] National Score (1-10 0), lower number is lower risk Not on file [facility] Start: 2003 Sex assigned at Not on file [facility] Telephone encounter Note 05-26-2024 Telephone Encounter - Aleta Hassan MA - 05/26/2024 12:15 PM EDT Note Date & Type Note Facility 05-26-2024 Telephone encount er Note Patient given results and verbalized understanding of instructions given. Aleta Hassan MA [facility] Note 05-26-2024 Telephone Encounter - Aleta Hassan [...] for persistent symptoms documented in this encounter [facility] Telephone encounter Note 05-26-2024 Telephone Encounter - Cassie Corrigan OCCA - 05/26/2024 9:37 AM EDT Note Date & Type Note Facility 05-26-2024 Telephone encount er Note TC to patient/mother with no answer. Left VM to return call to review results. OLLIE Perry [facility] Telephone encounter Note 05-26-2024 Telephone Encounter - Guillermo Horta PA - 05/26/2024 8:08 AM EDT Note Date & Type Note Facility 05-26-2024 Telephone encounter Note Please contact patient and let her know that urine culture was negative for UTI. Please follow-up with PCP for persistent symptoms [facility] Work Phone: Progress note 05-24-2024 Note Date & Type Note Facility 05-24-2024 Note HNO ID: [id number] Author: TANISHA BAUMAN APRN.CERTIFIED ORTHOTIST PRACTICE MANAGER Service: ? Author Type: Nurse Practitioner Type: Progress Notes Filed: 05/24/2024 15:07 Note Text: [facility] Troy Saeed is a 18 year old female. [...] history is provided by the patient. No language tutor was used. UTI Associated symptoms include frequency. [...] likely caused by her hemorrhoid. Tanisha Bauman APRN.[facility] History of Present illness Narrative 05-24-2024 Tanisha Bauman APRN.[facility] - 05/24/2024 2:27 PM EDT Note Date & Type Note Facility 05-24-2024 History of Presen t illness Narrative [facility] Mariangel Saeed is a 18 year old [...] history is provided by the patient. No language tutor was used. UTI Associated symptoms include frequency. [...] likely caused by her hemorrhoid. Tanisha Bauman APRN.[facility] MDM Procedures documented in this encounter [facility] Evaluation note Note Date & Type Note Facility Evaluation note No assessment information availa [facility] Work Phone: Evaluation note Note Date & Type Note Facility Evaluation note Diagnosis Urinary frequency- Primary documented in this encounter [facility] Summary Purpose Family History No Family History Records Found Relationship Condition Age at Onset Recorded Date/T [...] section and content) DATE CREATED AUTHOR 04/22/2020 [facility] DATE CREATED AUTHOR AUTHOR'S ORGANIZ ATION 05/27/2024 [facility] DATE CREATED AUTHOR AUTHOR'S ORGANIZ ATION 11/27/2024 [facility] Care Teams (unrecognized sec tion and content) [...] Provide r, Attending Provider, Referring Provider Active Minister Of Religion Relationship Specialty Start Date End Date Joey Jauregui MD [address] [place], [place] [id number] PCP - General Internal Medicine 05/24/24 Minister Of Religion Relationship Specialty Start Date End Date Joey Jauregui MD [address] [place], [place] [id number] PCP - General Internal Medicine 05/24/24 Goals [...] or prosecute any alcohol or drug abuse patient.[facility] the event this information is protected by the Federal Confidentiality of Alcohol and Drug Abuse Patient Records regulations: The Federal rules restrict any use of the information to criminally investigate or prosecute any alcohol or drug abuse patient.[facility] Reason for Visit (unrecogniz ed section and [...] BE BASED ON THE PRIMARY CLINICAL RECORDS. [facility] [employer] [facility]. provides no warranty or guarantee of the accuracy or completeness of information in this document.
== END | disposition home or self-care (01) ==
LOC: LAB 14:16
PROVIDERS: PCP Family Medicine; Referring Provider Family Medicine; Visit Provider Family Medicine
DX: M54.50 Low back pain, unspecified (principal)
CPT/HCPCS: 36415